=== PATIENT | male | born 1980 | race American Indian/Alaskan Native ===

== ENCOUNTER 2020-12-17 17:52 | Emergency (ER) | payer SELFPAY ==
[~2020-12-17] VITALS: Ht 180.3 cm; Wt 101.6 kg
[~2020-12-17 17:52] MED LIST: Augmentin 875-1 EACH PO; BENZ100A PO; Ocuflox5 ML BOTHEYES; Prednisone20 MG PO
[2020-12-17 18:16] LABS: BASOPHILS ABSOLUTE AUTO 0.06 K/mm3 (0.00-0.23); BASOPHILS PERCENT AUTO 1 % (0-2); EOSINOPHILS ABSOLUTE AUTO 0.22 K/mm3 (0.00-0.68); EOSINOPHILS PERCENT AUTO 2 % (0-6); Hematocrit 48.3 % (37.0-53.0); Hemoglobin 16.3 g/dL (13.5-17.5); IMMATURE GRAN ABSOLUTE AUTO 0.06 K/mm3 (0.00-0.10); IMMATURE GRAN PERCENT AUTO 1 % (0-1); LYMPHOCYTES ABSOLUTE AUTO 1.61 K/mm3 (0.84-5.20); LYMPHOCYTES PERCENT AUTO 12 % (21-46); MONOCYTES ABSOLUTE AUTO 1.18 K/mm3 (0.16-1.47); MONOCYTES PERCENT AUTO 9 % (4-13); Mean Corpuscular HGB 29.3 pg (26.0-34.0); Mean Corpuscular HGB Conc 33.7 g/dL (31.5-36.5); Mean Corpuscular Volume 87 fL (80-100); Mean Platelet Volume 10.2 fL (9.1-12.4); NEUTROPHILS ABSOLUTE AUTO 9.92 K/mm3 (1.96-9.15); NEUTROPHILS PERCENT AUTO 76 % (41-73); Platelet Count 416 K/mm3 (150-400); RDW Coefficient Variation 12.1 % (11.7-14.2); RDW Standard Deviation 38.5 fL (35.1-46.3); Red Blood Cell Count 5.57 M/mm3 (4.30-5.90); White Blood Cell Count 13.05 K/mm3 (4.00-11.30)
[2020-12-17 18:41] LABS: Alanine Aminotransfer (ALT/SGP 34 U/L (12-78); Albumin, Blood 3.6 g/dL (3.4-5.0); Albumin/Globulin Ratio 0.7 (0.8-1.8); Alk Phos 93 U/L (50-136); Anion Gap 6 mmol/L (6-16); Aspartate Aminotrans (AST/SGOT 18 U/L (12-37); Bilirubin, Total 0.5 mg/dL (0.1-1.0); Blood Urea Nitrogen 16 mg/dL (8-24); Bun/Creatinine Ratio 17.3 (12.0-20.0); CO2, Blood 25 mmol/L (21-32); Calcium, Blood 10.1 mg/dL (8.5-10.1); Chloride, Blood 109 mmol/L (98-108); Creatinine, Blood 0.93 mg/dL (0.60-1.20); Globulin, Blood 5.5 g/dL (2.2-4.0); Glomerular Filtration Rate >60 (60-); Glucose, Blood 126 mg/dL (70-99); Potassium, Blood 3.6 mmol/L (3.5-5.5); Sodium, Blood 140 mmol/L (136-145); Total Protein, Blood 9.1 g/dL (6.4-8.2)
[2020-12-17 19:51] LABS: Source, Urine Voided
[2020-12-17 19:54] LABS: Appearance, Urine Clear (Clear); Blood, Urine 2+ (Neg); Color, Urine Amber (P-Yellow); Glucose Qualitative, Urine Neg (Neg); Ketones, Urine Neg (Neg); Leukocyte Esterase, Urine 1+ (Neg); Nitrite, Urine Neg (Neg); Protein, Urine 2+ (Neg); Urobilinogen, Urine 3+ (Normal)
[2020-12-17 20:09] LABS: Bacteria Few /hpf; Bilirubin, Urine 1+ (Neg); Mucus Mod (0-Heavy); Squamous Epithelial Cells Not Seen /hpf (Few); White Blood Cells, Urine 0-2 /hpf (0-5)
[2020-12-17 20:10] LABS: Amorphous Light (0-Heavy)
[2020-12-17] MEDS ORDERED: AMOCLA875 PO (21:16)
== END 2020-12-17 21:27 | disposition home or self-care (01) ==
LOC: ER 17:52
PROVIDERS: Physician Assistant
DX: K57.32 Diverticulitis of large intestine without perforation or abscess without bleeding (principal); F17.200 Nicotine dependence, unspecified, uncomplicated
CPT/HCPCS: 36415; 74177; 80053; 81001; 83690; 85025; 96361; 96374-59; 99284-25; A9270; J0295; J7120; Q9967

== ENCOUNTER 2022-03-11 19:25 | Inpatient (IN) | payer OTHER ==
[~2022-03-11] VITALS: Ht 180.3 cm; Wt 89.8 kg
[~2022-03-11 19:25] MED LIST changes: +AMOCLA875 PO
[2022-03-11 20:25] LABS: BASOPHILS ABSOLUTE AUTO 0.08 K/mm3 (0.00-0.23); BASOPHILS PERCENT AUTO 1 % (0-2); EOSINOPHILS ABSOLUTE AUTO 0.11 K/mm3 (0.00-0.68); EOSINOPHILS PERCENT AUTO 1 % (0-6); Hematocrit 38.5 % (37.0-53.0); Hemoglobin 12.5 g/dL (13.5-17.5); IMMATURE GRAN ABSOLUTE AUTO 0.08 K/mm3 (0.00-0.10); IMMATURE GRAN PERCENT AUTO 1 % (0-1); LYMPHOCYTES ABSOLUTE AUTO 1.17 K/mm3 (0.84-5.20); LYMPHOCYTES PERCENT AUTO 7 % (21-46); MONOCYTES PERCENT AUTO 10 % (4-13); Mean Corpuscular HGB Conc 32.5 g/dL (31.5-36.5); Mean Corpuscular Volume 80 fL (80-100); Mean Platelet Volume 9.7 fL (9.1-12.4); NEUTROPHILS ABSOLUTE AUTO 12.89 K/mm3 (1.96-9.15); NEUTROPHILS PERCENT AUTO 81 % (41-73); Platelet Count 530 K/mm3 (150-400); RDW Coefficient Variation 14.1 % (11.7-14.2); RDW Standard Deviation 41.1 fL (35.1-46.3); White Blood Cell Count 15.93 K/mm3 (4.00-11.30)
[2022-03-11 20:39] LABS: Albumin, Blood 2.8 g/dL (3.4-5.0); Albumin/Globulin Ratio 0.5 (0.8-1.8); Bilirubin, Total 1.6 mg/dL (0.1-1.0); Bun/Creatinine Ratio 13.6 (12.0-20.0); Calcium, Blood 8.9 mg/dL (8.5-10.1); Creatinine, Blood 0.74 mg/dL (0.60-1.20); Globulin, Blood 5.3 g/dL (2.2-4.0); Total Protein, Blood 8.1 g/dL (6.4-8.2)
[2022-03-11 21:32] LABS: Source, Urine Clean Catch
[2022-03-11 21:39] LABS: Appearance, Urine Cloudy (Clear); Bilirubin, Urine Neg (Neg); Blood, Urine 5+ (Neg); Color, Urine Amber (P-Yellow); Glucose Qualitative, Urine Neg (Neg); Ketones, Urine Neg (Neg); Leukocyte Esterase, Urine 3+ (Neg); Nitrite, Urine Neg (Neg); Protein, Urine 3+ (Neg); Specific Gravity, Urine 1.015 (1.003-1.022); Urobilinogen, Urine 4+ (Normal)
[2022-03-11 21:57] LABS: Red Blood Cells, Urine 25-50 /hpf (0-2); White Blood Cells, Urine TNTC /hpf (0-5)
[2022-03-11 21:58] LABS: Bacteria Many /hpf; Squamous Epithelial Cells Rare /hpf (Few)
--- NOTE | 2022-03-12 00:23 | NUR ---
PATIENT ARRIVED TO THE ROOM AT 0010, VSS, NO DISTRESS NOTED. PT REQUESTED TO WALK FAMILY OUT OF THE BUILDING, EDUCATED ON RETURING TO THE ROOM WITHIN 30 MINUTE TIME LIMIT. WILL COMPLETE PATIENT ASSESSMENT UPON RETURN.
[2022-03-12] MEDS ORDERED: TAMS.4ER (02:21)
--- NOTE | 2022-03-12 04:15 | NUR ---
PT IS A NEW ADMIT THIS SHIFT, VSS. PT HAS BEEN TACHYCARDIC BUT HAS REMAINED ASYMPTOMATIC. PT HAS BEEN NPO SINCE ARRIVING TO THE FLOOR, AWAITING SURGICAL CONSULT IN THE AM TO SEE IF SURGERY IS REQUIRED. PTS PAIN HAS REMAINED IN THE LLQ AND ALONG THE BOTTOM OF THE ABDOMEN, MEDICATED FOR PAIN PER EMAR. PT C/O CONSTIPATION, HOME REMEDIES OF PRUNE JUICE AND UNKNOWN OTC LAXITIVES W/O RESULTS. PT C/O URGENCY AND PAIN WITH URINATION. PT HAS BEEN ABLE TO REMAIN INDEPENDENT T/O THE SHIFT. NO ACUTE EVENTS HAVE OCCURED AND THE PT IS NOT IN CURRENT DISTRESS.
[2022-03-12 05:19] LABS: BASOPHILS ABSOLUTE AUTO 0.08 K/mm3 (0.00-0.23); BASOPHILS PERCENT AUTO 1 % (0-2); EOSINOPHILS ABSOLUTE AUTO 0.29 K/mm3 (0.00-0.68); EOSINOPHILS PERCENT AUTO 2 % (0-6); Hematocrit 35.2 % (37.0-53.0); Hemoglobin 11.3 g/dL (13.5-17.5); IMMATURE GRAN ABSOLUTE AUTO 0.07 K/mm3 (0.00-0.10); IMMATURE GRAN PERCENT AUTO 1 % (0-1); LYMPHOCYTES ABSOLUTE AUTO 2.13 K/mm3 (0.84-5.20); LYMPHOCYTES PERCENT AUTO 17 % (21-46); MONOCYTES PERCENT AUTO 11 % (4-13); Mean Corpuscular HGB 26.5 pg (26.0-34.0); Mean Corpuscular HGB Conc 32.1 g/dL (31.5-36.5); Mean Corpuscular Volume 82 fL (80-100); Mean Platelet Volume 9.7 fL (9.1-12.4); NEUTROPHILS ABSOLUTE AUTO 8.95 K/mm3 (1.96-9.15); NEUTROPHILS PERCENT AUTO 69 % (41-73); Platelet Count 440 K/mm3 (150-400); RDW Coefficient Variation 14.3 % (11.7-14.2); RDW Standard Deviation 42.5 fL (35.1-46.3); Red Blood Cell Count 4.27 M/mm3 (4.30-5.90); White Blood Cell Count 12.92 K/mm3 (4.00-11.30)
[2022-03-12 05:38] LABS: Albumin, Blood 2.4 g/dL (3.4-5.0); Albumin/Globulin Ratio 0.5 (0.8-1.8); Bilirubin, Total 1.2 mg/dL (0.1-1.0); Bun/Creatinine Ratio 16.6 (12.0-20.0); Calcium, Blood 8.7 mg/dL (8.5-10.1); Creatinine, Blood 0.84 mg/dL (0.60-1.20); Globulin, Blood 4.5 g/dL (2.2-4.0); Potassium, Blood 3.7 mmol/L (3.5-5.5); Total Protein, Blood 6.9 g/dL (6.4-8.2)
[2022-03-12 08:23] LABS: International Normalized Ratio 1.43; Prothrombin Time Results 14.7 Sec (9.7-11.5)
--- NOTE | 2022-03-12 16:01 | NUR ---
SHIFT SUMMARY PT A&OX4, VSS/RA, IVF/ABX PER EMAR, PAIN TREATED WITH 5 MG OXY AND TORADOL, VOIDING-REPORTS DECREASED PAIN AND MARTINEZ IN COLOR, WITH SOME BLOOD, DINORAH CLD, AMB INDEPENDENTLY IN ROOM/BRP/HALLWAY. S/P CT GUIDED DRAIN PLACED LLQ, ODOROUS GREEN THICK FLUID OUT. WILL REPORT TO ONCOMING NOC RN.
--- NOTE | 2022-03-13 04:08 | NUR ---
POD1 FOR URACEL PLACEMENT IN LLQ. VSS. PT SLEPT WELL T/O THE NIGHT. PAIN HAS BEEM MANAGED WITH TORADOL AND TYLENOL. PT C/O CONTINUING CONSTIPATION, MINIMAL FLATTUS, AND DYSURIA. MEDICATED PER EMAR FOR CONSTIPATION. PT HAS BEEN ABLE TO AMBULATE INDEPENDENTLY T/O THE NIGHT. ATTEMPTED TO EMPTY URACEL DRAIN, UNABLE DUE TO CONSISTANCY OF THE DRAINAGE. GREEN, THICK, MUCOUSY, AND SANGUINEOUS FLUID NOTED. PT CURRENTLY SLEEPING, IN NO DISTRESS. CALL LIGHT IN REACH.
--- NOTE | 2022-03-13 09:42 | NUR ---
DR. HIGHTOWER CAME INTO THE ROOM AND ASSESSED THE PATIENTS DRAIN. THE DRAIN WAS CLOGGED FROM THICK MUCUS LIKE OUTPUT. DR. HIGHTOWER SAID TO "CALL IMAGING AND REPLACE THE DRAIN TUBE AND BAG". JUST REPLACED THE DRAIN AND TUBING AND ACCORDIAN IS PUSHED IN ALL THE WAY. RED OUTPUT IS ALREADY BEING SEEN IN THE DRAIN TUBING. PATIENT IS LAYING IN BED WITH CALL LIGHT WITHIN REACH.
--- NOTE | 2022-03-13 13:50 | NUR ---
SHIFT SUMMARY: DIVERTIC PERFED WITH ABSCESS PATIENT IS A&OX4. VS ARE WNL AND IS ON RA. PAIN IS MANAGED WITH PO TYLENOL AND 1 OXY. ABD IS TENDER TO TOUCH WITH HYPOACTIVE BOWEL TONES. HE IS TOLERATING HIS CLEAR LIQUID DIET. PATIENT HAS BEEN ABLE TO PASS GAS BUT NO BM YET. HE IS INDEP. IN THE ROOM. HIS URACIL DRAIN IS ON HIS ABD IN THE LLQ WITH VERY LITTLE RED OUTPUT IN THE TUBING. URACEL SITE IS C/D/I. PATIENT CALLS APPROPRIATELY. CALL LIGHT WITHIN REACH. THE PLAN IS TO CONTINUE IV ABX AND MONITOR URACEL OUTPUT.
--- NOTE | 2022-03-14 04:00 | NUR ---
VSS, PT SLEPT WELL T/O THE NIGHT. NO ACUTE EVENTS NOTED. PAIN MANAGED PER EMAR, PT REPORTED A TOLLERABLE DECREASE IN PAIN. URACEL DRAIN NOTED TO HAVE SCANT DRAINAGE. PT TOLLERATED PO INTAKE WELL, HAS NOT PASSED FLATTUS OR BM YET. PT CURRENTLY SLEEPING, IN NO DISTRESS.
[2022-03-14 04:25] LABS: BASOPHILS ABSOLUTE AUTO 0.09 K/mm3 (0.00-0.23); BASOPHILS PERCENT AUTO 1 % (0-2); EOSINOPHILS ABSOLUTE AUTO 0.24 K/mm3 (0.00-0.68); EOSINOPHILS PERCENT AUTO 2 % (0-6); Hematocrit 34.3 % (37.0-53.0); Hemoglobin 10.9 g/dL (13.5-17.5); IMMATURE GRAN ABSOLUTE AUTO 0.08 K/mm3 (0.00-0.10); IMMATURE GRAN PERCENT AUTO 1 % (0-1); LYMPHOCYTES ABSOLUTE AUTO 1.74 K/mm3 (0.84-5.20); LYMPHOCYTES PERCENT AUTO 16 % (21-46); MONOCYTES ABSOLUTE AUTO 1.12 K/mm3 (0.16-1.47); MONOCYTES PERCENT AUTO 10 % (4-13); Mean Corpuscular HGB 26.3 pg (26.0-34.0); Mean Corpuscular HGB Conc 31.8 g/dL (31.5-36.5); Mean Corpuscular Volume 83 fL (80-100); Mean Platelet Volume 9.8 fL (9.1-12.4); NEUTROPHILS ABSOLUTE AUTO 7.73 K/mm3 (1.96-9.15); NEUTROPHILS PERCENT AUTO 70 % (41-73); NRBC ABSOLUTE 0.05 K/mm3 (0.00-0.02); NRBC Auto 0.5 /100 WBC (0.0-0.2); Platelet Count 477 K/mm3 (150-400); RDW Coefficient Variation 14.3 % (11.7-14.2); RDW Standard Deviation 41.7 fL (35.1-46.3); Red Blood Cell Count 4.14 M/mm3 (4.30-5.90)
--- NOTE | 2022-03-14 04:29 | NUR ---
PT REPORTS STARTING TO PASS FLATTUS, EXPERIENCING RELIEF IN ABDOMINAL AREA
--- NOTE | 2022-03-14 17:57 | NUR ---
SHIFT SUMMARY NO ACUTE CHANGES THIS SHIFT. ADVANCED TO FULL LIQUID DIET AND TOLERATING WELL. DENIES N/V. PATIENT RESTING T/O DAY. DENIES PAIN. UP TO BR INDEPENDENTLY T/O SHIFT. REPORTS FLATUS T/O SHIFT, HAD BM TODAY. CALLS APPROPRIATELY, WILL REPORT TO ONCOMING RN.
--- NOTE | 2022-03-15 04:42 | NUR ---
SUMMARY PT HAS BEEN AMBULATORY AND WALKING FREQUENTLY. PT PAIN HAS BEEN MANAGED WELL THIS SHIFT. PT DRAIN IS INTACT AND DRAINING SS FLUID. PT HAS BEEN DRINKONG WATER EASILY AND DENIES N/V. PT HAD DIFFICULTY SLEEPING BUT IS RESTING COMFORTABLY. CALL LIGHT IN REACH.
--- NOTE | 2022-03-15 12:31 | NUR ---
1230 ASSUMED CARE OF PATIENT. PT REPORTS PAIN IS 0/10. TOLERATED REGULAR DIET FOR LUNCH WITHOUT NAUSEA
--- NOTE | 2022-03-15 17:39 | NUR ---
PT REPORTS MINIMAL ABD PAIN. UROSIL DRAIN WITH SCANT SEROSANGUINOUS DRAINAGE. PT DINORAH LOW RESIDUE DIET WITHOUT NAUSEA. PT AMBULATING IN HALLS , VOIDING CLAR YELLOW URINE.
--- NOTE | 2022-03-16 04:41 | NUR ---
ASSUMED CARE OF PT AT 1900 HRS. NO ACUTE CHANGES THIS SHIFT. PT IS A&OX4, INDEPENDENT WITH CARES AND IS ABLE TO MAKE NEEDS KNOWN. PT HAS DRAIN PLACED IN LLQ, SCANT AMOUNT OF SERO/SANG DRAINAGE. PAIN AT DRAIN SITE, HAS ISAURA 5MG AND ALSO HAS DILAUDID FOR BREAK THROUGH PAIN. PT ABLE TO AMBULATE FREELY. WILL CONTINUE TO MONITOR AND GIVE HANDOFF REPORT TO DAYSHIFT RN.
--- NOTE | 2022-03-16 11:33 | NUR ---
DRAIN REMOVED FROM LLQ. PAIN INCREASED AFTER DRAIN REMOVAL. PT GIVEN IV DILAUDID. HE REPORTS PAIN IS NOW MANAGED AND RATES IT AT 0/10.
[2022-03-16] MEDS ORDERED: AMOCLA875 PO ×2 (12:14)
[2022-03-16] MEDS ORDERED: Norco 5-325 Ta1 EACH PO ×2 (12:17)
--- NOTE | 2022-03-16 13:05 | NUR ---
DISCHARGE PT PROVIDED WITH WRITTEN AND VERBAL DISCHARGE INSTRUCTIONS, HE VERBALIZED UNDERSTANDING. PAIN MANAGED AT TIME OF DISCHARGE WITH PO PAIN MEDICATION. PT PROVIDED WITH A SCRIPT FOR ABX AND PAIN MEDICATION. PT AMBULATED OUT AT 1305.
== END 2022-03-16 13:05 | disposition home or self-care (01) | DRG 871 ==
LOC: ER 19:25 → SURS 23:04
PROVIDERS: Physician Assistant; ADMIT Surgery
PROC: 3E03329 Introduction of Other Anti-infective into Peripheral Vein, Percutaneous Approach (ICD-10-PCS; 2022-03-11)
PROC: 0W9J30Z Drainage of Pelvic Cavity with Drainage Device, Percutaneous Approach (ICD-10-PCS; principal; 2022-03-12)
DX: A41.9 Sepsis, unspecified organism (principal); K65.1 Peritoneal abscess; K57.20 Diverticulitis of large intestine with perforation and abscess without bleeding; F32.A Depression, unspecified; F17.210 Nicotine dependence, cigarettes, uncomplicated
CPT/HCPCS: 36415; 49405; 74177; 80053; 81001; 85025; 85610; 85730; 87070; 87075; 87077; 87086; 87186; 87205; 96365; 96375; 99285-25; A9270; J0295; J1170; J1885; J2405; J7030; J7120; Q9967

== ENCOUNTER 2022-03-20 12:23 | Emergency (ER) | payer OTHER ==
[~2022-03-20] VITALS: Ht 180.3 cm; Wt 99.8 kg
[~2022-03-20 12:23] MED LIST changes: +Norco 5-325 Ta1 EACH PO; +TAMS.4ER
[2022-03-20 13:15] LABS: BASOPHILS ABSOLUTE AUTO 0.08 K/mm3 (0.00-0.23); BASOPHILS PERCENT AUTO 1 % (0-2); EOSINOPHILS ABSOLUTE AUTO 0.23 K/mm3 (0.00-0.68); EOSINOPHILS PERCENT AUTO 3 % (0-6); Hematocrit 40.1 % (37.0-53.0); Hemoglobin 12.8 g/dL (13.5-17.5); IMMATURE GRAN ABSOLUTE AUTO 0.05 K/mm3 (0.00-0.10); IMMATURE GRAN PERCENT AUTO 1 % (0-1); LYMPHOCYTES ABSOLUTE AUTO 1.95 K/mm3 (0.84-5.20); LYMPHOCYTES PERCENT AUTO 21 % (21-46); MONOCYTES ABSOLUTE AUTO 0.53 K/mm3 (0.16-1.47); MONOCYTES PERCENT AUTO 6 % (4-13); Mean Corpuscular HGB 27.1 pg (26.0-34.0); Mean Corpuscular HGB Conc 31.9 g/dL (31.5-36.5); Mean Corpuscular Volume 85 fL (80-100); Mean Platelet Volume 9.7 fL (9.1-12.4); NEUTROPHILS ABSOLUTE AUTO 6.49 K/mm3 (1.96-9.15); NEUTROPHILS PERCENT AUTO 70 % (41-73); Platelet Count 494 K/mm3 (150-400); RDW Coefficient Variation 17.7 % (11.7-14.2); RDW Standard Deviation 48.6 fL (35.1-46.3); Red Blood Cell Count 4.72 M/mm3 (4.30-5.90); White Blood Cell Count 9.33 K/mm3 (4.00-11.30)
[2022-03-20 13:42] LABS: Albumin, Blood 2.5 g/dL (3.4-5.0); Albumin/Globulin Ratio 0.5 (0.8-1.8); Bilirubin, Total 0.9 mg/dL (0.1-1.0); Bun/Creatinine Ratio 9.8 (12.0-20.0); Calcium, Blood 8.7 mg/dL (8.5-10.1); Creatinine, Blood 0.82 mg/dL (0.60-1.20); Globulin, Blood 4.8 g/dL (2.2-4.0); Potassium, Blood 4.3 mmol/L (3.5-5.5); Total Protein, Blood 7.3 g/dL (6.4-8.2)
[2022-03-21] MEDS ORDERED: HYDPAM50 PO (12:47)
[2022-03-21] MEDS ORDERED: METR500 PO (12:48)
[2022-03-21] MEDS ORDERED: SULTRIDS PO (12:48)
== END 2022-03-20 16:20 | disposition left against medical advice (07) ==
LOC: ER 12:23
PROVIDERS: Student in an Organized Health Care Education/Training Program
DX: R06.02 Shortness of breath (principal); Z53.21 Procedure and treatment not carried out due to patient leaving prior to being seen by health care provider
CPT/HCPCS: 36415; 80053; 85025

== ENCOUNTER 2022-03-21 11:27 | Emergency (ER) | payer OTHER ==
[~2022-03-21] VITALS: Ht 180.3 cm; Wt 99.8 kg
[2022-03-21] MEDS ORDERED: HYDPAM50 PO (12:47)
[2022-03-21] MEDS ORDERED: SULTRIDS PO (12:48)
[2022-03-21] MEDS ORDERED: METR500 PO (12:48)
== END 2022-03-21 13:29 | disposition home or self-care (01) ==
LOC: ER 11:27
DX: L29.9 Pruritus, unspecified (principal); T36.0X5A Adverse effect of penicillins, initial encounter; T36.1X5A Adverse effect of cephalosporins and other beta-lactam antibiotics, initial encounter; F17.200 Nicotine dependence, unspecified, uncomplicated; Z88.0 Allergy status to penicillin; Z88.8 Allergy status to other drugs, medicaments and biological substances; Z79.899 Other long term (current) drug therapy
CPT/HCPCS: 99282

== ENCOUNTER 2022-05-21 15:18 | Emergency (ER) | payer OTHER ==
[~2022-05-21] VITALS: Ht 180.3 cm; Wt 95.2 kg
[~2022-05-21 15:18] MED LIST changes: +CARV25 PO; +ENTRESTO 49 MG1 EACH PO; +FUROSEMIDE20 MG PO; +HYDPAM50 PO; +METR500 PO; +Potassium Chlo20 ME1 PO; +SPIR25 PO; +STEGLATRO5 MG PO; +SULTRIDS PO; +[UNRECOGNIZED DRUG - CODE]
[2022-05-21] MEDS ORDERED: Vibramycin100 MG PO (17:07)
[2022-05-23 08:12] LABS: CHLAMYDIA TRACHOMATIS, NAA Negative (Negative)
== END 2022-05-21 17:34 | disposition home or self-care (01) ==
LOC: ER 15:18
PROVIDERS: Physician Assistant
DX: N45.1 Epididymitis (principal); F17.210 Nicotine dependence, cigarettes, uncomplicated; Z88.0 Allergy status to penicillin
CPT/HCPCS: 76870; 87491; 87591; A9270; J0696

== ENCOUNTER 2022-05-22 23:31 | Emergency (ER) | payer OTHER ==
[~2022-05-22] VITALS: Ht 180.3 cm; Wt 92.5 kg
[~2022-05-22 23:31] MED LIST changes: +Vibramycin100 MG PO
== END 2022-05-23 01:12 | disposition home or self-care (01) ==
LOC: ER 23:31
DX: N45.1 Epididymitis (principal); F17.200 Nicotine dependence, unspecified, uncomplicated; Z88.0 Allergy status to penicillin; Z88.8 Allergy status to other drugs, medicaments and biological substances
CPT/HCPCS: A9270

== ENCOUNTER 2022-05-25 20:36 | Inpatient (IN) | payer OTHER ==
[~2022-05-25] VITALS: Ht 180.3 cm; Wt 92.5 kg
[2022-05-25 22:02] LABS: Source, Urine Clean Catch
[2022-05-25 22:09] LABS: Bilirubin, Urine Neg (Neg); Blood, Urine 4+ (Neg); Glucose Qualitative, Urine Neg (Neg); Ketones, Urine Neg (Neg); Leukocyte Esterase, Urine 3+ (Neg); Nitrite, Urine Neg (Neg); Protein, Urine 2+ (Neg); Specific Gravity, Urine 1.015 (1.003-1.022); Urobilinogen, Urine 3+ (Normal)
[2022-05-25 22:16] LABS: Appearance, Urine Cloudy (Clear); Color, Urine Yellow (P-Yellow)
[2022-05-25 22:22] LABS: White Blood Cells, Urine TNTC /hpf (0-5)
[2022-05-25 22:23] LABS: Bacteria Many /hpf; Squamous Epithelial Cells Few /hpf (Few)
[2022-05-26 02:10] LABS: BASOPHILS ABSOLUTE AUTO 0.06 K/mm3 (0.00-0.23); BASOPHILS PERCENT AUTO 0 % (0-2); EOSINOPHILS ABSOLUTE AUTO 0.05 K/mm3 (0.00-0.68); EOSINOPHILS PERCENT AUTO 0 % (0-6); Hematocrit 42.4 % (37.0-53.0); Hemoglobin 14.1 g/dL (13.5-17.5); IMMATURE GRAN ABSOLUTE AUTO 0.16 K/mm3 (0.00-0.10); IMMATURE GRAN PERCENT AUTO 1 % (0-1); LYMPHOCYTES ABSOLUTE AUTO 1.29 K/mm3 (0.84-5.20); LYMPHOCYTES PERCENT AUTO 7 % (21-46); MONOCYTES ABSOLUTE AUTO 1.62 K/mm3 (0.16-1.47); MONOCYTES PERCENT AUTO 8 % (4-13); Mean Corpuscular HGB 28.1 pg (26.0-34.0); Mean Corpuscular HGB Conc 33.3 g/dL (31.5-36.5); Mean Corpuscular Volume 85 fL (80-100); Mean Platelet Volume 9.6 fL (9.1-12.4); NEUTROPHILS ABSOLUTE AUTO 16.71 K/mm3 (1.96-9.15); NEUTROPHILS PERCENT AUTO 84 % (41-73); Platelet Count 426 K/mm3 (150-400); RDW Coefficient Variation 17.5 % (11.7-14.2); RDW Standard Deviation 53.8 fL (35.1-46.3); Red Blood Cell Count 5.02 M/mm3 (4.30-5.90); White Blood Cell Count 19.89 K/mm3 (4.00-11.30)
[2022-05-26 02:24] LABS: Albumin, Blood 2.8 g/dL (3.4-5.0); Albumin/Globulin Ratio 0.6 (0.8-1.8); Bilirubin, Total 1.4 mg/dL (0.1-1.0); Bun/Creatinine Ratio 18.1 (12.0-20.0); C-REACTIVE PROTEIN, EXT RANGE 16.5 mg/dL (0.000-0.300); Calcium, Blood 8.6 mg/dL (8.5-10.1); Creatinine, Blood 0.61 mg/dL (0.60-1.20); Globulin, Blood 4.7 g/dL (2.2-4.0); Potassium, Blood 3.8 mmol/L (3.5-5.5); Total Protein, Blood 7.5 g/dL (6.4-8.2)
[2022-05-26] MEDS ORDERED: METOPROLOL (11:16)
--- NOTE | 2022-05-26 17:20 | NUR ---
SHIFT SUMMARY PT ADMITTED THIS MORNING. ORIENTED TO ROOM AT THAT TIME. PT MET WITH DR. PAEZ TODAY AND CONTINUES TO REFUSE COBRA TRANSFER. PT SCROTUM CONTINUES TO BE SWOLLEN. PT ELEVATING IT UP ON PILLOWS WHILE IN BED. MEDICATED PER EMAR. PT STATES HIS PAIN IS CURRENTLY UNDER CONTROL AT THIS TIME. VS REVIEWED. PT REFUSING COREG AND STATING HE DOES NOT TAKE THAT AT HOME ANYMORE. DR. PAEZ NOTIFIED. NO OTHER ACUTE CHANGES IN ASSESSMENT AT THIS TIME.
[2022-05-27 04:25] LABS: BASOPHILS ABSOLUTE AUTO 0.07 K/mm3 (0.00-0.23); BASOPHILS PERCENT AUTO 0 % (0-2); EOSINOPHILS ABSOLUTE AUTO 0.22 K/mm3 (0.00-0.68); EOSINOPHILS PERCENT AUTO 1 % (0-6); Hematocrit 37.9 % (37.0-53.0); Hemoglobin 12.7 g/dL (13.5-17.5); IMMATURE GRAN ABSOLUTE AUTO 0.09 K/mm3 (0.00-0.10); IMMATURE GRAN PERCENT AUTO 1 % (0-1); LYMPHOCYTES ABSOLUTE AUTO 1.62 K/mm3 (0.84-5.20); LYMPHOCYTES PERCENT AUTO 10 % (21-46); MONOCYTES ABSOLUTE AUTO 1.49 K/mm3 (0.16-1.47); MONOCYTES PERCENT AUTO 10 % (4-13); Mean Corpuscular HGB 28.2 pg (26.0-34.0); Mean Corpuscular HGB Conc 33.5 g/dL (31.5-36.5); Mean Corpuscular Volume 84 fL (80-100); Mean Platelet Volume 9.9 fL (9.1-12.4); NEUTROPHILS ABSOLUTE AUTO 12.08 K/mm3 (1.96-9.15); NEUTROPHILS PERCENT AUTO 78 % (41-73); Platelet Count 420 K/mm3 (150-400); RDW Coefficient Variation 17.2 % (11.7-14.2); RDW Standard Deviation 53.1 fL (35.1-46.3); White Blood Cell Count 15.57 K/mm3 (4.00-11.30)
[2022-05-27 04:45] LABS: Albumin, Blood 2.5 g/dL (3.4-5.0); Anion Gap 8 mmol/L (6-16); Blood Urea Nitrogen 18 mg/dL (8-24); Bun/Creatinine Ratio 26.4 (12.0-20.0); CO2, Blood 26 mmol/L (21-32); Calcium, Blood 8.8 mg/dL (8.5-10.1); Chloride, Blood 99 mmol/L (98-108); Creatinine, Blood 0.68 mg/dL (0.60-1.20); Glomerular Filtration Rate 119 (60-); Glucose, Blood 89 mg/dL (70-99); Phosphorus, Blood 3.6 mg/dL (2.5-4.9); Potassium, Blood 3.8 mmol/L (3.5-5.5); Sodium, Blood 133 mmol/L (136-145)
--- NOTE | 2022-05-27 05:49 | NUR ---
A/OX4; CALM AND COOPERATIVE. C/O SEVERE PAIN TO TESTICLES; PRN ANALGESICS PER ORDERS; HELPFUL PER PATIENT. IND IN ROOM. SHOWERED. THIS RN REQUESTED THAT PATIENT USE URINAL (NO OUTPUT FOR MOST OF SHIFT AND ON TORADOL); 250 ML TOTAL AT END OF SHIFT, VERY CONCENTRATED. PO FLUIDS ENCOURAGED. TELE: SR /ST WITH HR UP TO 90's. ABX PER ORDERS. CALL LIGHT IN REACH; ENCOURAGED TO MAKE NEEDS KNOWN.
--- NOTE | 2022-05-27 17:26 | NUR ---
PATIENT C/O CP AND RIGHT JAW PAIN 4/10 AT THIS TIME. VITALS REVEAL PULSE 95 BPM, BP 114/85, SP02 100%, TEMP 98.1, RESP 16
--- NOTE | 2022-05-27 18:54 | NUR ---
PATIENT IS ALERT AND ORIENTED AND COOPERATIVE WITH CARE. PAIN MANAGED PER EMAR. PATIENT STATES THAT THE JOCK STRAP IS HELPING. PATIENT SHOWERED TODAY. NICOTINE PATCH IN PLACE. PLAN IS FOR ANTIBIOTICS AND PAIN MANAGEMENT. PATIENT C/O CP AND RIGHT JAW PAIN THIS AFTERNOON, RESOLVED ON IT'S OWN. WILL CONTINUE TO MONITOR
--- NOTE | 2022-05-28 06:45 | NUR ---
A/OX4; CALM AND COOPERATIVE. C/O SEVERE PAIN TO TESTICLES; PRN ANALGESICS PER ORDERS; HELPFUL PER PATIENT. IND IN ROOM. PO FLUIDS ENCOURAGED. TELE: SR /ST WITH HR UP TO 90's. CALL LIGHT IN REACH; ENCOURAGED TO MAKE NEEDS KNOWN.
[2022-05-28 07:59] LABS: BASOPHILS ABSOLUTE AUTO 0.03 K/mm3 (0.00-0.23); BASOPHILS PERCENT AUTO 0 % (0-2); EOSINOPHILS ABSOLUTE AUTO 0.35 K/mm3 (0.00-0.68); EOSINOPHILS PERCENT AUTO 3 % (0-6); Hematocrit 38.6 % (37.0-53.0); Hemoglobin 12.8 g/dL (13.5-17.5); IMMATURE GRAN ABSOLUTE AUTO 0.06 K/mm3 (0.00-0.10); IMMATURE GRAN PERCENT AUTO 1 % (0-1); LYMPHOCYTES PERCENT AUTO 13 % (21-46); MONOCYTES ABSOLUTE AUTO 1.26 K/mm3 (0.16-1.47); MONOCYTES PERCENT AUTO 10 % (4-13); Mean Corpuscular HGB 27.9 pg (26.0-34.0); Mean Corpuscular HGB Conc 33.2 g/dL (31.5-36.5); Mean Corpuscular Volume 84 fL (80-100); Mean Platelet Volume 9.5 fL (9.1-12.4); NEUTROPHILS PERCENT AUTO 73 % (41-73); Platelet Count 410 K/mm3 (150-400); RDW Coefficient Variation 17.2 % (11.7-14.2); RDW Standard Deviation 52.6 fL (35.1-46.3); Red Blood Cell Count 4.59 M/mm3 (4.30-5.90)
[2022-05-28 08:16] LABS: Bun/Creatinine Ratio 25.2 (12.0-20.0); Calcium, Blood 8.7 mg/dL (8.5-10.1); Creatinine, Blood 0.52 mg/dL (0.60-1.20); Potassium, Blood 3.9 mmol/L (3.5-5.5)
--- NOTE | 2022-05-28 11:03 | NUR ---
PT INDEPENDENT IN ROOM, ROOM AIR, IV ACCESS TO LEFT AC. DR. CONNOR VISTED AT 0840 TO DISCUSS TRANSITIONING TO ORAL PAIN MEDICATION. 5MG OXYCODONE WORKED TO REDUCE PT'S PAIN FROM 8/10 TO 210. PT IS WITHDRAWN, NEUTRAL, BUT COOPERATIVE WITH CARE. ROOM AIR. TELEMETRY REPORTS SINUS IN THE 90'S. PT DENIES CHEST PAIN OR PRESSURE.
--- NOTE | 2022-05-28 12:47 | NUR ---
with pt verbal pt, RN spoke to pt's mother Tanya and gave status update. pt will be discharged today, updated by Dr. Borrero to RN.
[2022-05-28] MEDS ORDERED: DOCU100 PO (13:55)
[2022-05-28] MEDS ORDERED: NAPR500 PO (13:56)
[2022-05-28] MEDS ORDERED: LEVO750 PO (13:56)
[2022-05-28] MEDS ORDERED: OXYC5 PO (13:58)
[2022-05-28] MEDS ORDERED: NICO21TP TOP (13:58)
[2022-05-28] MEDS ORDERED: VISBIOME 112.51 EACH PO (13:59)
[2022-05-28] MEDS ORDERED: SENNA LAXATIVE8.6 MG PO (13:59)
--- NOTE | 2022-05-28 14:30 | NUR ---
RN COMPLETED DISCHARGE TEACHING WITH PT, INCLUDING PICKING UP MEDICATIONS FROM [facility]. GREEN HARD COPY SCRIPTS WERE GIVEN TO PT FOR PROTONIX AND OXYCODONE 5MG. INSTRUCTED TO MAINTAIN F/U APPTS SCHEDULED WITH PCP. PT VERBALIZED UNDERSTANDING AND NO FURTHER QUESTIONS. IV REMOVED BY UNLOADER OPERATOR, TELEMETRY REMOVED. CANDY CUTTER HAND NOTIFIED. PT'S BELONGINGS WERE PACKED UP.
--- NOTE | 2022-05-28 16:19 | NUR ---
DISCHARGE NOTE APPOINTMENT SPECIALIST REPORTS THAT PT DISCHARGED AT 1600.
== END 2022-05-28 16:14 | disposition home or self-care (01) | DRG 872 ==
LOC: ER 20:36 → MEDS 05-26 06:12
PROVIDERS: Emergency Medicine; Internal Medicine; Student in an Organized Health Care Education/Training Program; ADMIT Family Medicine
DX: A41.51 Sepsis due to Escherichia coli [E. coli] (principal); I42.8 Other cardiomyopathies; I50.22 Chronic systolic (congestive) heart failure; N39.0 Urinary tract infection, site not specified; N45.1 Epididymitis; F15.10 Other stimulant abuse, uncomplicated; Z88.1 Allergy status to other antibiotic agents; Z88.8 Allergy status to other drugs, medicaments and biological substances; F32.A Depression, unspecified; N49.2 Inflammatory disorders of scrotum; N43.3 Hydrocele, unspecified; D75.839 Thrombocytosis, unspecified; F17.210 Nicotine dependence, cigarettes, uncomplicated; Z71.6 Tobacco abuse counseling
CPT/HCPCS: 36415; 76870; 80048; 80053; 80069; 81001; 83605; 85025; 86140; 87077; 87086; 87186; A9270; C9113; J0696; J1170; J1650; J1885; J3010; J3370; J7050

== ENCOUNTER 2022-06-23 12:03 | Emergency (ER) | payer OTHER ==
[~2022-06-23 12:03] MED LIST changes: +DOCU100 PO; +LEVO750 PO; +METOPROLOL; +NAPR500 PO; +NICO21TP TOP; +OXYC5 PO; +SENNA LAXATIVE8.6 MG PO; +VISBIOME 112.51 EACH PO
[2022-06-23] MEDS ORDERED: CEPH500 PO (17:42)
== END 2022-06-23 17:55 | disposition home or self-care (01) ==
DX: N50.89 Other specified disorders of the male genital organs (principal); N49.2 Inflammatory disorders of scrotum; I42.9 Cardiomyopathy, unspecified; Z91.14 Patient's other noncompliance with medication regimen; F17.210 Nicotine dependence, cigarettes, uncomplicated; Z79.899 Other long term (current) drug therapy

== ENCOUNTER 2022-06-30 18:10 | Inpatient (IN) | payer OTHER ==
[~2022-06-30] VITALS: Ht 180.3 cm; Wt 96.5 kg
[~2022-06-30 18:10] MED LIST changes: +CEPH500 PO
[2022-06-30 19:26] LABS: BASOPHILS ABSOLUTE AUTO 0.08 K/mm3 (0.00-0.23); BASOPHILS PERCENT AUTO 1 % (0-2); EOSINOPHILS ABSOLUTE AUTO 0.09 K/mm3 (0.00-0.68); EOSINOPHILS PERCENT AUTO 1 % (0-6); Hematocrit 39.4 % (37.0-53.0); Hemoglobin 13.1 g/dL (13.5-17.5); IMMATURE GRAN ABSOLUTE AUTO 0.04 K/mm3 (0.00-0.10); IMMATURE GRAN PERCENT AUTO 1 % (0-1); LYMPHOCYTES ABSOLUTE AUTO 1.21 K/mm3 (0.84-5.20); LYMPHOCYTES PERCENT AUTO 14 % (21-46); MONOCYTES ABSOLUTE AUTO 0.77 K/mm3 (0.16-1.47); MONOCYTES PERCENT AUTO 9 % (4-13); Mean Corpuscular HGB 28.2 pg (26.0-34.0); Mean Corpuscular HGB Conc 33.2 g/dL (31.5-36.5); Mean Corpuscular Volume 85 fL (80-100); Mean Platelet Volume 9.5 fL (9.1-12.4); NEUTROPHILS ABSOLUTE AUTO 6.58 K/mm3 (1.96-9.15); NEUTROPHILS PERCENT AUTO 75 % (41-73); Platelet Count 334 K/mm3 (150-400); RDW Coefficient Variation 16.5 % (11.7-14.2); RDW Standard Deviation 50.5 fL (35.1-46.3); Red Blood Cell Count 4.65 M/mm3 (4.30-5.90); White Blood Cell Count 8.77 K/mm3 (4.00-11.30)
[2022-06-30 19:29] LABS: Influenza A, PCR NEGATIVE (NEGATIVE); Influenza B, PCR NEGATIVE (NEGATIVE); Resp Syncytial Virus, PCR NEGATIVE (NEGATIVE); SARS-Cov-2 (COVID-19) PCR, MMC NEGATIVE (NEGATIVE)
[2022-06-30 19:37] LABS: Albumin, Blood 3.2 g/dL (3.4-5.0); Albumin/Globulin Ratio 0.7 (0.8-1.8); Bilirubin, Total 1.7 mg/dL (0.1-1.0); Bun/Creatinine Ratio 19.3 (12.0-20.0); Calcium, Blood 9.1 mg/dL (8.5-10.1); Creatinine, Blood 0.73 mg/dL (0.60-1.20); Globulin, Blood 4.5 g/dL (2.2-4.0); Potassium, Blood 3.8 mmol/L (3.5-5.5); Total Protein, Blood 7.7 g/dL (6.4-8.2)
[2022-07-01 01:08] LABS: Anti-Xa UFH, PHA Monitoring <0.10 IU/mL; International Normalized Ratio 1.58; Prothrombin Time Results 16.1 Sec (9.7-11.5)
[2022-07-01 09:06] LABS: U Amphetamine Screen Not Detected; U Barbituate Screen Not Detected; U Benzodiazapine Screen Not Detected; U Buprenorphine Screen Not Detected; U Cannabinoids Screen Not Detected; U Cocaine Screen Not Detected; U Methadone Screen Not Detected; U Methamphetamine Screen Not Detected; U Opiates Screen Not Detected; U Oxycodone Screen DETECTED; U Phencyclidine Screen Not Detected; U Propoxyphene Screen Not Detected
[2022-07-01] MEDS ORDERED: Cipro500 MG PO (12:52)
[2022-07-01] MEDS ORDERED: METR500 PO (13:01)
--- NOTE | 2022-07-01 17:47 | NUR ---
ARRIVAL TO [facility]/SHIFT SUMMARY PT ARRIVED TO [facility] AT APPROXIMATELY 1500. PT STOOD AN TRANSFERED SELF IND FROM ER [facility] TO HOSPITAL BED. PT ARRIVED WITH HEPARIN GTT INFUSING, CONFIRMED WITH PHARMACY. PT IS A&Ox4, CALLS AND COMMUNICATES NEEDS APPROPRIATELY. VSS, DENIES CP/PRESSURE/SOB. ORIENTED PT TO ROOM/UNIT, CALL LIGHT IN REACH, BED IN LOWEST POSITION. SCROTUM WOUND ASSESSED AND WOUND CARE PROVIDED WITH MELY ROUSSEAU. PT SMOKES CIGARETTES DAILY, REFUSED NICOTINE PATCH. PT REMAINED A&Ox4, CALLS AND COMMUNICATES NEEDS APPROPRIATELY. VSS, SpO2> 92% RA. BP STABLE, SINUS 80's, DENIES CP/PRESSURE. PT IS IND IN ROOM, CONTINENT OF URINE AND BOWEL. HEPARIN GTT INFUSING PER EMAR. NO ACUTE EVENTS. WILL REPORT TO DAY SHIFT RN.
--- NOTE | 2022-07-02 05:09 | NUR ---
PHARMACIST NAYA CONTACTED REGARDING HEPARIN DOSE AND THIS RN WAS INSTRUCTED TO LEAVE HEPARIN GTT AT CURRENT RATE OF 17 U/KG/HR.
--- NOTE | 2022-07-02 06:11 | NUR ---
DRAW FRAME RUNNER SUMMARY ASSUMED CARE OF PT AT 1900. HE IS ALERT AND ORIENTED, INDEPENDENT IN THE ROOM. PT WITH INCREASING PAIN TO THE LEFT SCROTAL AREA DUE TO ABSCESS AND TORSION. MEDICATED X2 WITH IV FENTANYL AND ORDER OBTAINED FOR 10 MG PO OXYCODONE THAT PT REPORTED MANAGING HIS PAIN AT HOME. HE CONTINUES TO DENY CHEST PAIN. PT HAD TWO EPISODES OF ASYMPTOMATIC SHORT SVT WHILE SLEEPING. HE HAD SOME SHORTNESS OF BREATH AT BEGINNING OF SHIFT BUT THIS RESOLVED. CURRENTLY IN THE 80S SINUS RHYTHM ON TELE. HEPARIN DRIP CHANGED TO 17 U/KG/HR PER PHARMACY MANAGEMENT. PT RECEIVED IV ZOSYN AND VANCO LAST NIGHT. BP HAS BEEN STABLE. PT ABLE TO ASSIST WITH DRESSING CHANGES TO THE SCROTAL AREA. PT AMBULATING THROUGH THE BENITEZ WITHOUT DIFFICULTY. PT AWAITING TRANSFER TO ANOTHER FACILITY FOR UROLOGY.
--- NOTE | 2022-07-02 07:45 | NUR ---
AM ASSESSMENT: Pt resting in bed. Denies CP or SOB at this time. Does C/O scrotal pain 09/06 that is tolerable at this time. LS clear. HR reg. BT positive. Pulses palp. Scrotum with dressing intact. Heprin gtt running. A/Ox4. Denies needs at this time. Call light in reach.
[2022-07-02 08:32] LABS: Vancomycin, Trough 20.7 ug/mL (5.0-10.0)
[2022-07-02] MEDS ORDERED: JARDIANCE10 MG PO (11:00)
[2022-07-02] MEDS ORDERED: METO25ER PO (11:00)
[2022-07-02] MEDS ORDERED: SOAANZ20 M1 PO (11:01)
[2022-07-02] MEDS ORDERED: SPIR25 PO (11:01)
[2022-07-02] MEDS ORDERED: VISBIOME 112.51 EACH PO (11:02)
[2022-07-02] MEDS ORDERED: AMOCLA250S PO (11:03)
--- NOTE | 2022-07-02 13:11 | NUR ---
DISCHARGE NOTE: Pt was given verbal and written discharge instructions. This included education about medications, F/U appointments, wound care and when/if to return to ER. Pt verbalized understanding, denies questions. IV's were discontinued, caths intact. Pt left via W/C Prior to D/C Pt mother called, very anxious and concerned about Pt being discharged. She stated "You are sending him home to ". Mother was informed that Pt. issues are chronic and that we do not have urology here to take care of scrotal wound. Also explained dire bed availablity throughout all of [place] and low likelyhood of Pt actually being able to be transfered. Explained the importance of medication compliance and compliance with follow up appointments. Pt mother was still not happy and wanted to talk to "administration". After multiple phone calls by Mother it was determined that Pt would be discharged. Pt Mother came and picked up patient.
== END 2022-07-02 13:16 | disposition home or self-care (01) | DRG 917 ==
LOC: ER 18:10 → ERHOLD 07-01 06:04 → PCU 07-01 06:04
PROVIDERS: Internal Medicine; Student in an Organized Health Care Education/Training Program; ADMIT Internal Medicine
DX: T43.651A Poisoning by methamphetamines accidental (unintentional), initial encounter (principal); I21.4 Non-ST elevation (NSTEMI) myocardial infarction; E87.1 Hypo-osmolality and hyponatremia; I42.7 Cardiomyopathy due to drug and external agent; I50.22 Chronic systolic (congestive) heart failure; I24.9 Acute ischemic heart disease, unspecified; N45.3 Epididymo-orchitis; F32.A Depression, unspecified; F17.210 Nicotine dependence, cigarettes, uncomplicated; F15.10 Other stimulant abuse, uncomplicated; I08.1 Rheumatic disorders of both mitral and tricuspid valves; F10.10 Alcohol abuse, uncomplicated; Z20.822 Contact with and (suspected) exposure to COVID-19; Z79.2 Long term (current) use of antibiotics; Z79.891 Long term (current) use of opiate analgesic; Z98.890 Other specified postprocedural states; Z79.899 Other long term (current) drug therapy; Z91.14 Patient's other noncompliance with medication regimen; Z79.82 Long term (current) use of aspirin
CPT/HCPCS: 0241U; 36415; 71045; 76857; 76870; 80053; 80202; 83690; 84484; 85025; 85520; 85610; 85730; 87070; 87075; 87205; 93005; 93010; 96365; 96366; 96375; 99285-25; A9270; G0480; J0692; J1644; J2543; J3010; J3370; J7050

== ENCOUNTER 2022-07-30 01:00 | Emergency (ER) | payer OTHER ==
[~2022-07-30] VITALS: Ht 175.3 cm; Wt 95.2 kg
[~2022-07-30 01:00] MED LIST changes: +AMOCLA250S PO; +Cipro500 MG PO; +JARDIANCE10 MG PO; +METO25ER PO; +SOAANZ20 M1 PO
[2022-07-30 01:58] LABS: BASOPHILS ABSOLUTE AUTO 0.06 K/mm3 (0.00-0.23); BASOPHILS PERCENT AUTO 1 % (0-2); EOSINOPHILS ABSOLUTE AUTO 0.07 K/mm3 (0.00-0.68); EOSINOPHILS PERCENT AUTO 1 % (0-6); Hematocrit 37.8 % (37.0-53.0); Hemoglobin 12.4 g/dL (13.5-17.5); IMMATURE GRAN ABSOLUTE AUTO 0.03 K/mm3 (0.00-0.10); IMMATURE GRAN PERCENT AUTO 0 % (0-1); LYMPHOCYTES ABSOLUTE AUTO 1.37 K/mm3 (0.84-5.20); LYMPHOCYTES PERCENT AUTO 14 % (21-46); MONOCYTES ABSOLUTE AUTO 0.84 K/mm3 (0.16-1.47); MONOCYTES PERCENT AUTO 9 % (4-13); Mean Corpuscular HGB 28.4 pg (26.0-34.0); Mean Corpuscular HGB Conc 32.8 g/dL (31.5-36.5); Mean Corpuscular Volume 87 fL (80-100); Mean Platelet Volume 10.3 fL (9.1-12.4); NEUTROPHILS ABSOLUTE AUTO 7.53 K/mm3 (1.96-9.15); NEUTROPHILS PERCENT AUTO 76 % (41-73); Platelet Count 323 K/mm3 (150-400); RDW Coefficient Variation 15.8 % (11.7-14.2); RDW Standard Deviation 49.1 fL (35.1-46.3); Red Blood Cell Count 4.37 M/mm3 (4.30-5.90)
[2022-07-30 02:04] LABS: Source, Urine Clean Catch
[2022-07-30 02:07] LABS: Bilirubin, Urine Neg (Neg); Blood, Urine 5+ (Neg); Glucose Qualitative, Urine Neg (Neg); Ketones, Urine 1+ (Neg); Leukocyte Esterase, Urine 3+ (Neg); Nitrite, Urine Neg (Neg); Protein, Urine 4+ (Neg); Urobilinogen, Urine NORM (Normal)
[2022-07-30 02:17] LABS: Albumin, Blood 2.3 g/dL (3.4-5.0); Albumin/Globulin Ratio 0.8 (0.8-1.8); Bilirubin, Total 1.3 mg/dL (0.1-1.0); Bun/Creatinine Ratio 29.5 (12.0-20.0); Calcium, Blood 6.4 mg/dL (8.5-10.1); Creatinine, Blood 0.61 mg/dL (0.60-1.20); Globulin, Blood 2.9 g/dL (2.2-4.0); Potassium, Blood 3.6 mmol/L (3.5-5.5); Total Protein, Blood 5.2 g/dL (6.4-8.2)
[2022-07-30 03:08] LABS: Appearance, Urine Turbid (Clear); Color, Urine Red (P-Yellow)
[2022-07-30 03:12] LABS: Amorphous Light (0-Heavy); Bacteria Many /hpf; Red Blood Cells, Urine TNTC /hpf (0-2); Squamous Epithelial Cells Rare /hpf (Few); White Blood Cells, Urine 50-100 /hpf (0-5)
[2022-07-30] MEDS ORDERED: Pyridium100 MG PO (06:06)
[2022-07-30] MEDS ORDERED: CEPH500 PO (06:06)
== END 2022-07-30 06:32 | disposition home or self-care (01) ==
LOC: ER 01:00
PROVIDERS: Student in an Organized Health Care Education/Training Program
DX: N30.91 Cystitis, unspecified with hematuria (principal); N50.89 Other specified disorders of the male genital organs; R06.02 Shortness of breath; I50.9 Heart failure, unspecified; F17.200 Nicotine dependence, unspecified, uncomplicated; Z79.899 Other long term (current) drug therapy
CPT/HCPCS: 71046; 76870; 80053; 81001; 83605; 83880; 84484; 85025; 87077; 87086; 87186; 93005; 93010; A9270; J0696; J3010

== ENCOUNTER 2022-08-17 11:04 | Emergency (ER) | payer OTHER ==
[~2022-08-17] VITALS: Ht 180.3 cm; Wt 98.4 kg
[~2022-08-17 11:04] MED LIST changes: +Pyridium100 MG PO
[2022-08-17 11:58] LABS: Albumin, Blood 3.1 g/dL (3.4-5.0); Albumin/Globulin Ratio 0.8 (0.8-1.8); Bilirubin, Total 1.8 mg/dL (0.1-1.0); Bun/Creatinine Ratio 20.2 (12.0-20.0); Calcium, Blood 8.8 mg/dL (8.5-10.1); Creatinine, Blood 0.79 mg/dL (0.60-1.20); Globulin, Blood 4.1 g/dL (2.2-4.0); Potassium, Blood 4.5 mmol/L (3.5-5.5); Total Protein, Blood 7.2 g/dL (6.4-8.2)
[2022-08-17 12:06] LABS: Magnesium, Blood 2.1 mg/dL (1.6-2.4); Phosphorus, Blood 3.5 mg/dL (2.5-4.9)
[2022-08-17 12:53] LABS: BASOPHILS ABSOLUTE AUTO 0.07 K/mm3 (0.00-0.23); BASOPHILS PERCENT AUTO 1 % (0-2); EOSINOPHILS ABSOLUTE AUTO 0.23 K/mm3 (0.00-0.68); EOSINOPHILS PERCENT AUTO 3 % (0-6); Hemoglobin 14.1 g/dL (13.5-17.5); IMMATURE GRAN ABSOLUTE AUTO 0.01 K/mm3 (0.00-0.10); IMMATURE GRAN PERCENT AUTO 0 % (0-1); LYMPHOCYTES ABSOLUTE AUTO 1.49 K/mm3 (0.84-5.20); LYMPHOCYTES PERCENT AUTO 22 % (21-46); MONOCYTES ABSOLUTE AUTO 0.53 K/mm3 (0.16-1.47); MONOCYTES PERCENT AUTO 8 % (4-13); Mean Corpuscular HGB 28.3 pg (26.0-34.0); Mean Corpuscular HGB Conc 32.8 g/dL (31.5-36.5); Mean Corpuscular Volume 86 fL (80-100); Mean Platelet Volume 9.9 fL (9.1-12.4); NEUTROPHILS ABSOLUTE AUTO 4.42 K/mm3 (1.96-9.15); NEUTROPHILS PERCENT AUTO 66 % (41-73); Platelet Count 281 K/mm3 (150-400); RDW Coefficient Variation 16.6 % (11.7-14.2); RDW Standard Deviation 51.3 fL (35.1-46.3); Red Blood Cell Count 4.99 M/mm3 (4.30-5.90); White Blood Cell Count 6.75 K/mm3 (4.00-11.30)
[2022-08-17] MEDS ORDERED: CYCL10 PO (13:57)
== END 2022-08-17 14:20 | disposition home or self-care (01) ==
LOC: ER 11:04
PROVIDERS: Emergency Medicine
DX: I50.9 Heart failure, unspecified (principal); F17.200 Nicotine dependence, unspecified, uncomplicated; Z79.899 Other long term (current) drug therapy; Z86.79 Personal history of other diseases of the circulatory system
CPT/HCPCS: 36415; 71046; 80053; 83735; 83880; 84100; 84484; 85025; 93005; 93010; J1940; J2405; J3010

== ENCOUNTER 2022-09-01 00:48 | Emergency (ER) | payer OTHER ==
[~2022-09-01] VITALS: Ht 180.3 cm; Wt 102.1 kg
[~2022-09-01 00:48] MED LIST changes: +CYCL10 PO
[2022-09-01] MEDS ORDERED: ENTRESTO 49 MG1 EAC7 PO (01:02)
[2022-09-01 01:11] LABS: BASOPHILS ABSOLUTE AUTO 0.14 K/mm3 (0.00-0.23); BASOPHILS PERCENT AUTO 2 % (0-2); EOSINOPHILS ABSOLUTE AUTO 0.67 K/mm3 (0.00-0.68); EOSINOPHILS PERCENT AUTO 7 % (0-6); Hematocrit 47.4 % (37.0-53.0); Hemoglobin 15.4 g/dL (13.5-17.5); IMMATURE GRAN ABSOLUTE AUTO 0.03 K/mm3 (0.00-0.10); IMMATURE GRAN PERCENT AUTO 0 % (0-1); LYMPHOCYTES ABSOLUTE AUTO 2.67 K/mm3 (0.84-5.20); LYMPHOCYTES PERCENT AUTO 28 % (21-46); MONOCYTES ABSOLUTE AUTO 0.79 K/mm3 (0.16-1.47); MONOCYTES PERCENT AUTO 8 % (4-13); Mean Corpuscular HGB 27.6 pg (26.0-34.0); Mean Corpuscular HGB Conc 32.5 g/dL (31.5-36.5); Mean Corpuscular Volume 85 fL (80-100); Mean Platelet Volume 9.3 fL (9.1-12.4); NEUTROPHILS ABSOLUTE AUTO 5.32 K/mm3 (1.96-9.15); NEUTROPHILS PERCENT AUTO 55 % (41-73); Platelet Count 357 K/mm3 (150-400); RDW Coefficient Variation 16.9 % (11.7-14.2); RDW Standard Deviation 50.7 fL (35.1-46.3); Red Blood Cell Count 5.58 M/mm3 (4.30-5.90); White Blood Cell Count 9.62 K/mm3 (4.00-11.30)
[2022-09-01 02:21] LABS: Albumin, Blood 3.2 g/dL (3.4-5.0); Albumin/Globulin Ratio 0.7 (0.8-1.8); Bun/Creatinine Ratio 22.2 (12.0-20.0); Calcium, Blood 9.2 mg/dL (8.5-10.1); Creatinine, Blood 1.17 mg/dL (0.60-1.20); Globulin, Blood 4.5 g/dL (2.2-4.0); Potassium, Blood 4.5 mmol/L (3.5-5.5); Total Protein, Blood 7.7 g/dL (6.4-8.2)
[2022-09-01 02:27] LABS: Bilirubin, Total 2.1 mg/dL (0.1-1.0)
== END 2022-09-01 04:45 | disposition home or self-care (01) ==
LOC: ER 00:48
PROVIDERS: Student in an Organized Health Care Education/Training Program
DX: R07.9 Chest pain, unspecified (principal); I50.9 Heart failure, unspecified; F17.200 Nicotine dependence, unspecified, uncomplicated; Z79.899 Other long term (current) drug therapy
CPT/HCPCS: 36415; 71046; 80053; 83880; 84484; 85025; 93005; 93010; A9270; J2405

== ENCOUNTER 2022-10-23 11:05 | Observation (INO) | payer OTHER ==
[~2022-10-23] VITALS: Ht 180.3 cm; Wt 110.5 kg
[~2022-10-23 11:05] MED LIST changes: +ENTRESTO 49 MG1 EAC7 PO
[2022-10-23 11:36] LABS: Source, Urine Clean Catch
[2022-10-23 12:03] LABS: Appearance, Urine Cloudy (Clear); Bilirubin, Urine Neg (Neg); Blood, Urine 5+ (Neg); Color, Urine Yellow (P-Yellow); Glucose Qualitative, Urine Neg (Neg); Ketones, Urine Neg (Neg); Leukocyte Esterase, Urine 3+ (Neg); Nitrite, Urine Pos (Neg); Protein, Urine 2+ (Neg); Urobilinogen, Urine 1+ (Normal)
[2022-10-23 12:31] LABS: Bacteria Many /hpf; Mucus Mod (0-Heavy); Red Blood Cells, Urine 25-50 /hpf (0-2); Squamous Epithelial Cells Mod /hpf (Few)
[2022-10-23 14:41] LABS: BASOPHILS ABSOLUTE AUTO 0.09 K/mm3 (0.00-0.23); BASOPHILS PERCENT AUTO 1 % (0-2); EOSINOPHILS ABSOLUTE AUTO 0.23 K/mm3 (0.00-0.68); EOSINOPHILS PERCENT AUTO 2 % (0-6); Hematocrit 43.8 % (37.0-53.0); IMMATURE GRAN ABSOLUTE AUTO 0.03 K/mm3 (0.00-0.10); IMMATURE GRAN PERCENT AUTO 0 % (0-1); LYMPHOCYTES ABSOLUTE AUTO 0.95 K/mm3 (0.84-5.20); LYMPHOCYTES PERCENT AUTO 10 % (21-46); MONOCYTES ABSOLUTE AUTO 0.88 K/mm3 (0.16-1.47); MONOCYTES PERCENT AUTO 9 % (4-13); Mean Corpuscular HGB 26.4 pg (26.0-34.0); Mean Corpuscular Volume 83 fL (80-100); Mean Platelet Volume 9.5 fL (9.1-12.4); NEUTROPHILS ABSOLUTE AUTO 7.21 K/mm3 (1.96-9.15); NEUTROPHILS PERCENT AUTO 77 % (41-73); Platelet Count 329 K/mm3 (150-400); RDW Standard Deviation 58.1 fL (35.1-46.3); Red Blood Cell Count 5.31 M/mm3 (4.30-5.90); White Blood Cell Count 9.39 K/mm3 (4.00-11.30)
[2022-10-23 15:03] LABS: Albumin, Blood 2.7 g/dL (3.4-5.0); Albumin/Globulin Ratio 0.6 (0.8-1.8); Bilirubin, Total 2.1 mg/dL (0.1-1.0); Bun/Creatinine Ratio 23.7 (12.0-20.0); Calcium, Blood 8.5 mg/dL (8.5-10.1); Creatinine, Blood 0.8 mg/dL (0.60-1.20); Globulin, Blood 4.3 g/dL (2.2-4.0); Magnesium, Blood 2.1 mg/dL (1.6-2.4); Potassium, Blood 4.1 mmol/L (3.5-5.5)
[2022-10-23] MEDS ORDERED: POTA10T PO (17:39)
[2022-10-23] MEDS ORDERED: FURO20 PO (17:39)
[2022-10-23 18:14] LABS: Source, Urine Clean Catch
[2022-10-23 18:24] LABS: Appearance, Urine Clear (Clear); Bilirubin, Urine Neg (Neg); Blood, Urine 1+ (Neg); Color, Urine Yellow (P-Yellow); Glucose Qualitative, Urine Neg (Neg); Ketones, Urine Neg (Neg); Leukocyte Esterase, Urine 1+ (Neg); Nitrite, Urine Neg (Neg); Protein, Urine Neg (Neg); Urobilinogen, Urine NORM (Normal)
[2022-10-23 19:12] LABS: Bacteria Rare /hpf; Squamous Epithelial Cells Not Seen /hpf (Few)
--- NOTE | 2022-10-23 19:44 | NUR ---
PT ADMITTED TO ROOM 301 FROM ED BY W/C. INDEPENDENT IN ROOM. ADMISSION COMPLETED. TELE STARTED. EDEMA TO LE'S UP TO SCROTUM AND LOWER ABDOMEN. REPORT GIVEN TO ONCOMING SHIFT.
--- NOTE | 2022-10-23 22:20 | NUR ---
SPOKE WITH [facility] @ 4657. PT HAD 7 BEAT RUN OF TACHYCARDIA THAT HAD SINCE RESOLVED. PATIENT ASYMPTOMATIC. DENIES CP, SOB, DYSPNEA, ETC. RUNNING NSR AT THIS TIME. WILL CONTINUE TO MONITOR.
--- NOTE | 2022-10-24 02:31 | NUR ---
LATE NOTE. PT ASKED TO TAKE OFF TELE FOR EVENING IT IS PREVENTING HIM FROM SLEEPING. EXPLAINED NEED FOR TELE BOX. REMINDED HIM THAT HE IS ALLOWED TO REFUSE THE TELE BOX BUT THAT IT IS NOT RECOMMENDED DUE TO CURRENT CONDITION. PT UNDERSTANDS AND REFUSED TELE BOX FOR EVENING, PLANS TO PUT IT BACK ON IN THE MORNING. NOTIFIED AIRPLANE CABIN ATTENDANT.
--- NOTE | 2022-10-24 03:46 | NUR ---
SHIFT MOSTLY UNREMARKABLE. 7 BEAT RUN OF TACHYCARDIA EARLY IN SHIFT. SEE RELATED NOTE FOR DETAILS. PT HAS DENIED PAIN OF ANY KIND THROUGHOUT SHIFT. ABOUT 0000 PT REPORTED BRIEF, INTENSE FEELINGS OF ANXIETY. DENIED ANY OTHER ACCOMPANYING SYMPTOMS. QUICKLY RESOLVED ONCE PT TOOK HIS SHIRT OFF. VITAL SIGNS WERE WNL. AT ABOUT 0100 PT REQUESTED TO TAKE OFF TELE BOX FOR EVENING TO ALLOW HIM TO SLEEP. SEE RELATED NOTE FOR DETAILS. SHIFT OTHERWISE UNREMARKABLE. CALL LIGHT LEFT WITHIN REACH.
[2022-10-24 05:38] LABS: Bun/Creatinine Ratio 29.6 (12.0-20.0); Calcium, Blood 8.5 mg/dL (8.5-10.1); Creatinine, Blood 0.85 mg/dL (0.60-1.20)
--- NOTE | 2022-10-24 17:46 | NUR ---
SHIFT SUMMARY PT DOZING ON AND OFF TODAY REPORTING HE SLEPT POORLY LAST NIGHT. VOIDING WELL AND HAD MORE THAN 2 LITERS OFF. REPORTS INCREASED PAIN TO SCROTAL AREA THIS AFTERNOON. TYLENOL GIVEN. AMBULATING IN HALLWAYS. LEFT UNIT AND WHEN ASKED IF HE HAD GONE AND SMOKED HE SAID MAYBE. EXPLAINED SMOKING POLICY OF THE HOSPITAL.
--- NOTE | 2022-10-25 05:15 | NUR ---
SHIFT MOSTLY UNREMARKABLE. PAIN WELL MANAGED ON CURRENT MEDICATION REGIMEN. PT AOX4 AND COOPERATIVE WITH CARE THROUGHOUT SHIFT, PLEASANT. PT ACCIDENTALLY PULLED IV EARLY IN MORNING, REPLACED WITH NEW IV IN LEFT FOREARM. PT IS INDEPENDENT WITHIN ROOM. CALLS APPROPRIATELY. CALL LIGHT LEFT WITHIN REACH.
[2022-10-25 05:47] LABS: Albumin, Blood 2.8 g/dL (3.4-5.0); Anion Gap 7 mmol/L (6-16); Blood Urea Nitrogen 27 mg/dL (8-24); Bun/Creatinine Ratio 29.2 (12.0-20.0); CO2, Blood 28 mmol/L (21-32); Calcium, Blood 8.7 mg/dL (8.5-10.1); Chloride, Blood 102 mmol/L (98-108); Creatinine, Blood 0.93 mg/dL (0.60-1.20); Glomerular Filtration Rate 105 (60-); Glucose, Blood 91 mg/dL (70-99); Phosphorus, Blood 4.4 mg/dL (2.5-4.9); Potassium, Blood 3.9 mmol/L (3.5-5.5); Sodium, Blood 137 mmol/L (136-145)
[2022-10-25] MEDS ORDERED: MELATONIN5 M1 PO (09:49)
[2022-10-25] MEDS ORDERED: VISBIOME 112.51 EACH PO (09:50)
[2022-10-25] MEDS ORDERED: CEPH500 PO (09:51)
[2022-10-25] MEDS ORDERED: JARDIANCE10 MG PO (09:52)
--- NOTE | 2022-10-25 11:23 | NUR ---
DSCHARGE INSTRUCTIONS TO BOTH SPOUSE AND PATIENT, BOTH STATED UNDERSTANDING OF FOLLOW UP NEEDS AND MEDICATIONS FAXED TO [facility] IN [place]
== END 2022-10-25 11:38 | disposition home or self-care (01) ==
LOC: ER 11:05 → MEDS 11:06
PROVIDERS: Student in an Organized Health Care Education/Training Program; ADMIT Family Medicine
DX: I50.23 Acute on chronic systolic (congestive) heart failure (principal); N39.0 Urinary tract infection, site not specified; I08.1 Rheumatic disorders of both mitral and tricuspid valves; E87.1 Hypo-osmolality and hyponatremia; F17.210 Nicotine dependence, cigarettes, uncomplicated
CPT/HCPCS: 36415; 71046; 76870; 80048; 80053; 80069; 81001; 83735; 83880; 84145; 85025; 87077; 87086; 87186; 93005; 93010; 96374; 96375; 96376; 99285-25; A9270; G0378; J0696

== ENCOUNTER 2023-05-22 15:49 | Emergency (ER) | payer OTHER ==
[~2023-05-22] VITALS: Ht 180.3 cm; Wt 97.5 kg
[~2023-05-22 15:49] MED LIST changes: +FURO20 PO; +MELATONIN5 M1 PO; +POTA10T PO
[2023-05-22 16:32] LABS: BASOPHILS ABSOLUTE AUTO 0.07 K/mm3 (0.00-0.23); BASOPHILS PERCENT AUTO 1 % (0-2); EOSINOPHILS ABSOLUTE AUTO 0.15 K/mm3 (0.00-0.68); EOSINOPHILS PERCENT AUTO 2 % (0-6); Hematocrit 45.4 % (37.0-53.0); Hemoglobin 15.1 g/dL (13.5-17.5); IMMATURE GRAN ABSOLUTE AUTO 0.02 K/mm3 (0.00-0.10); IMMATURE GRAN PERCENT AUTO 0 % (0-1); LYMPHOCYTES ABSOLUTE AUTO 1.47 K/mm3 (0.84-5.20); LYMPHOCYTES PERCENT AUTO 21 % (21-46); MONOCYTES ABSOLUTE AUTO 0.85 K/mm3 (0.16-1.47); MONOCYTES PERCENT AUTO 12 % (4-13); Mean Corpuscular HGB 30.1 pg (26.0-34.0); Mean Corpuscular HGB Conc 33.3 g/dL (31.5-36.5); Mean Corpuscular Volume 91 fL (80-100); Mean Platelet Volume 10.3 fL (9.1-12.4); NEUTROPHILS ABSOLUTE AUTO 4.51 K/mm3 (1.96-9.15); NEUTROPHILS PERCENT AUTO 64 % (41-73); Platelet Count 235 K/mm3 (150-400); RDW Coefficient Variation 15.5 % (11.7-14.2); RDW Standard Deviation 50.5 fL (35.1-46.3); Red Blood Cell Count 5.01 M/mm3 (4.30-5.90); White Blood Cell Count 7.07 K/mm3 (4.00-11.30)
[2023-05-22 16:37] LABS: Source, Urine Clean Catch
[2023-05-22 16:42] LABS: Appearance, Urine Hazy (Clear); Bilirubin, Urine Neg (Neg); Blood, Urine 4+ (Neg); Color, Urine Yellow (P-Yellow); Glucose Qualitative, Urine Neg (Neg); Ketones, Urine Neg (Neg); Leukocyte Esterase, Urine 3+ (Neg); Nitrite, Urine Neg (Neg); Protein, Urine 2+ (Neg); Urobilinogen, Urine 2+ (Normal)
[2023-05-22 16:51] LABS: White Blood Cells, Urine TNTC /hpf (0-5)
[2023-05-22 16:52] LABS: Bacteria Many /hpf; Squamous Epithelial Cells Not Seen /hpf (Few)
[2023-05-22 17:10] LABS: Albumin, Blood 3.4 g/dL (3.4-5.0); Albumin/Globulin Ratio 0.7 (0.8-1.8); Bilirubin, Total 1.9 mg/dL (0.1-1.0); Bun/Creatinine Ratio 22.4 (12.0-20.0); Calcium, Blood 9.1 mg/dL (8.5-10.1); Creatinine, Blood 0.76 mg/dL (0.60-1.20); Globulin, Blood 4.9 g/dL (2.2-4.0); Potassium, Blood 4.2 mmol/L (3.5-5.5); Total Protein, Blood 8.3 g/dL (6.4-8.2)
[2023-05-22] MEDS ORDERED: Potassium Chlo20 ME1 PO (18:33)
[2023-05-22] MEDS ORDERED: Pyridium100 MG PO (19:23)
[2023-05-22] MEDS ORDERED: CEPH500 PO (19:23)
[2023-05-22] MEDS ORDERED: ONDA4 PO (19:23)
[2023-05-22 19:48] VITALS: BP 142/87
== END 2023-05-22 19:46 | disposition home or self-care (01) ==
LOC: ER 15:49
PROVIDERS: Physician Assistant
DX: N39.0 Urinary tract infection, site not specified (principal); Z88.8 Allergy status to other drugs, medicaments and biological substances; Z79.899 Other long term (current) drug therapy; I48.91 Unspecified atrial fibrillation; I50.9 Heart failure, unspecified
CPT/HCPCS: 71046; 80053; 81001; 83880; 85025; 87077; 87086; 87186; 93005; 93010; 99284-25; A9270

== ENCOUNTER 2023-06-16 15:27 | Emergency (ER) | payer OTHER ==
[~2023-06-16] VITALS: Ht 180.3 cm; Wt 98.4 kg
[~2023-06-16 15:27] MED LIST changes: +ONDA4 PO
[2023-06-16 16:31] LABS: Albumin, Blood 3.4 g/dL (3.4-5.0); Albumin/Globulin Ratio 0.7 (0.8-1.8); Bilirubin, Total 1.8 mg/dL (0.1-1.0); Bun/Creatinine Ratio 21.7 (12.0-20.0); Calcium, Blood 9.1 mg/dL (8.5-10.1); Creatinine, Blood 0.88 mg/dL (0.60-1.20); Globulin, Blood 5.1 g/dL (2.2-4.0); Total Protein, Blood 8.5 g/dL (6.4-8.2)
[2023-06-16 17:15] LABS: BASOPHILS ABSOLUTE AUTO 0.07 K/mm3 (0.00-0.23); BASOPHILS PERCENT AUTO 1 % (0-2); EOSINOPHILS PERCENT AUTO 2 % (0-6); Hematocrit 46.7 % (37.0-53.0); IMMATURE GRAN ABSOLUTE AUTO 0.09 K/mm3 (0.00-0.10); IMMATURE GRAN PERCENT AUTO 1 % (0-1); LYMPHOCYTES ABSOLUTE AUTO 1.16 K/mm3 (0.84-5.20); LYMPHOCYTES PERCENT AUTO 14 % (21-46); MONOCYTES ABSOLUTE AUTO 0.81 K/mm3 (0.16-1.47); MONOCYTES PERCENT AUTO 10 % (4-13); Mean Corpuscular HGB Conc 34.3 g/dL (31.5-36.5); Mean Corpuscular Volume 88 fL (80-100); NEUTROPHILS ABSOLUTE AUTO 6.08 K/mm3 (1.96-9.15); NEUTROPHILS PERCENT AUTO 72 % (41-73); RDW Standard Deviation 48.4 fL (35.1-46.3); Red Blood Cell Count 5.33 M/mm3 (4.30-5.90); White Blood Cell Count 8.41 K/mm3 (4.00-11.30)
[2023-06-16 17:18] LABS: Source, Urine Clean Catch
[2023-06-16 17:35] LABS: Appearance, Urine Cloudy (Clear); Bilirubin, Urine Neg (Neg); Blood, Urine 5+ (Neg); Color, Urine Yellow (P-Yellow); Glucose Qualitative, Urine Neg (Neg); Ketones, Urine Neg (Neg); Leukocyte Esterase, Urine 3+ (Neg); Nitrite, Urine Neg (Neg); Protein, Urine 3+ (Neg); Specific Gravity, Urine 1.025 (1.003-1.022); Urobilinogen, Urine 1+ (Normal)
[2023-06-16 17:47] LABS: White Blood Cells, Urine TNTC /hpf (0-5)
[2023-06-16 17:48] LABS: Bacteria Many /hpf; Red Blood Cells, Urine 25-50 /hpf (0-2); Squamous Epithelial Cells Rare /hpf (Few)
[2023-06-16 19:40] VITALS: BP 110/71
== END 2023-06-16 19:41 | disposition left against medical advice (07) ==
LOC: ER 15:27
PROVIDERS: Student in an Organized Health Care Education/Training Program
DX: N32.1 Vesicointestinal fistula (principal); T43.621A Poisoning by amphetamines, accidental (unintentional), initial encounter; I42.7 Cardiomyopathy due to drug and external agent; I50.9 Heart failure, unspecified; I48.91 Unspecified atrial fibrillation; F17.210 Nicotine dependence, cigarettes, uncomplicated; Z88.8 Allergy status to other drugs, medicaments and biological substances; Z79.899 Other long term (current) drug therapy
CPT/HCPCS: 72193; 80053; 81001; 85025; 87077; 87086; 87186; 96365; 99283-25; J0295; Q9967

== ENCOUNTER 2023-07-01 13:18 | Inpatient (IN) | payer OTHER ==
[~2023-07-01] VITALS: Ht 180.3 cm; Wt 101.5 kg
[2023-07-01 14:32] LABS: BASOPHILS ABSOLUTE AUTO 0.07 K/mm3 (0.00-0.23); BASOPHILS PERCENT AUTO 1 % (0-2); EOSINOPHILS ABSOLUTE AUTO 0.23 K/mm3 (0.00-0.68); EOSINOPHILS PERCENT AUTO 3 % (0-6); Hematocrit 46.3 % (37.0-53.0); Hemoglobin 15.2 g/dL (13.5-17.5); IMMATURE GRAN ABSOLUTE AUTO 0.06 K/mm3 (0.00-0.10); IMMATURE GRAN PERCENT AUTO 1 % (0-1); LYMPHOCYTES ABSOLUTE AUTO 1.15 K/mm3 (0.84-5.20); LYMPHOCYTES PERCENT AUTO 12 % (21-46); MONOCYTES ABSOLUTE AUTO 0.89 K/mm3 (0.16-1.47); MONOCYTES PERCENT AUTO 10 % (4-13); Mean Corpuscular HGB 29.8 pg (26.0-34.0); Mean Corpuscular HGB Conc 32.8 g/dL (31.5-36.5); Mean Corpuscular Volume 91 fL (80-100); Mean Platelet Volume 9.6 fL (9.1-12.4); NEUTROPHILS ABSOLUTE AUTO 6.86 K/mm3 (1.96-9.15); NEUTROPHILS PERCENT AUTO 74 % (41-73); Platelet Count 299 K/mm3 (150-400); RDW Coefficient Variation 15.9 % (11.7-14.2); RDW Standard Deviation 51.3 fL (35.1-46.3); White Blood Cell Count 9.26 K/mm3 (4.00-11.30)
[2023-07-01 15:01] LABS: Albumin, Blood 3.3 g/dL (3.4-5.0); Albumin/Globulin Ratio 0.7 (0.8-1.8); Bilirubin, Total 1.4 mg/dL (0.1-1.0); Bun/Creatinine Ratio 12.8 (12.0-20.0); Calcium, Blood 8.9 mg/dL (8.5-10.1); Creatinine, Blood 0.7 mg/dL (0.60-1.20); Globulin, Blood 4.8 g/dL (2.2-4.0); Potassium, Blood 4.3 mmol/L (3.5-5.5); Total Protein, Blood 8.1 g/dL (6.4-8.2)
[2023-07-01] MEDS ORDERED: OXYC5 (18:09)
[2023-07-01] MEDS ORDERED: FUROSEMIDE20 MG PO (18:09)
[2023-07-01] MEDS ORDERED: ONDA4ODT (18:10)
[2023-07-01 18:37] LABS: Source, Urine Clean Catch
[2023-07-01 18:43] LABS: Appearance, Urine Clear (Clear); Bilirubin, Urine Neg (Neg); Blood, Urine 3+ (Neg); Color, Urine Yellow (P-Yellow); Glucose Qualitative, Urine Neg (Neg); Ketones, Urine Neg (Neg); Leukocyte Esterase, Urine 3+ (Neg); Nitrite, Urine Neg (Neg); Protein, Urine 1+ (Neg); Specific Gravity, Urine 1.015 (1.003-1.022); Urobilinogen, Urine 1+ (Normal)
[2023-07-01 18:56] LABS: Bacteria Many /hpf; Squamous Epithelial Cells Rare /hpf (Few); White Blood Cells, Urine 25-50 /hpf (0-5)
--- NOTE | 2023-07-02 04:30 | NUR ---
ASSUMED CARE PATIENT ARRIVED TO ICU VIA WHEELCHAIR, A&O X 4. NS @ 75ML/HR TO 20G LT AC IV. BELONGINGS WITH PATIENT AND WAITING OUTSIDE OF UNIT. PATIENT ABLE TO STAND AND TRANSFER TO BED ON OWN. REPORT RECEIVED FROM CHELSEA JIMENEZ RN.
[2023-07-02 04:44] LABS: Hematocrit 42.9 % (37.0-53.0); Hemoglobin 14.1 g/dL (13.5-17.5); Mean Corpuscular HGB 29.7 pg (26.0-34.0); Mean Corpuscular HGB Conc 32.9 g/dL (31.5-36.5); Mean Corpuscular Volume 90 fL (80-100); Mean Platelet Volume 9.6 fL (9.1-12.4); Platelet Count 247 K/mm3 (150-400); RDW Standard Deviation 52.3 fL (35.1-46.3); Red Blood Cell Count 4.75 M/mm3 (4.30-5.90); White Blood Cell Count 9.13 K/mm3 (4.00-11.30)
[2023-07-02 04:47] VITALS: BP 106/90
[2023-07-02 05:07] LABS: Albumin, Blood 2.9 g/dL (3.4-5.0); Albumin/Globulin Ratio 0.7 (0.8-1.8); Bilirubin, Total 1.3 mg/dL (0.1-1.0); Bun/Creatinine Ratio 15.4 (12.0-20.0); Calcium, Blood 8.6 mg/dL (8.5-10.1); Creatinine, Blood 0.84 mg/dL (0.60-1.20); Globulin, Blood 4.3 g/dL (2.2-4.0); Potassium, Blood 3.9 mmol/L (3.5-5.5); Total Protein, Blood 7.2 g/dL (6.4-8.2)
[2023-07-02 05:27] LABS: BAND PERCENT MAN 6 % (0-8); BASOPHILS PERCENT MAN 0 % (0-2); EOSINOPHILS ABSOLUTE MAN 0.54 K/mm3 (0.00-0.68); EOSINOPHILS PERCENT MAN 6 % (0-6); LYMPHOCYTES ABSOLUTE MAN 1.18 K/mm3 (0.84-5.20); LYMPHOCYTES PERCENT MAN 13 % (21-46); MONOCYTES ABSOLUTE MAN 1.18 K/mm3 (0.16-1.47); MONOCYTES PERCENT MAN 13 % (4-13); SEG NEUTROPHILS PERCENT MAN 62 % (41-73); TOTAL CELLS COUNTED 100
--- NOTE | 2023-07-02 06:14 | NUR ---
SHIFT SUMMARY PATIENT PLACED ON 2LPM VIA NC FOR DYSPNEA AND INCREASED WORK OF BREATHING. SPO2 DROPS TO 85% AT LOWEST. LUNG SOUNDS COARSE T/O. LASIX 40MG IV QD STARTED AND RESTARTING PATIENT'S HOME POTASSIUM. FLUIDS ON SB. PATIENT'S AT BEDSIDE. STILL PENDING TRANSFER BED FOR HIGHER LEVEL OF CARE.
[2023-07-02 08:49] VITALS: BP 117/78
--- NOTE | 2023-07-02 16:00 | NUR ---
PT OUT OF ROOM AMBULATING
--- NOTE | 2023-07-02 17:32 | NUR ---
SUMMARY PT A/O X4, INDEP IN ROOM AND AMB T/O HOSPITAL. C/O LEG CRAMPS/SPASMS TODAY, TYLENOL GIVEN AND AMBULATING HELPS. PT WEARS JOCK STRAP FOR SWOLLEN SCROTUM. ABLE TO URINATE WITHOUT ISSUE. IV ANTIBIOTICS CONTINUE. NO SIGN OF DISTRESS. PT TRANSFERED TO ROOM 310.
--- NOTE | 2023-07-02 19:01 | NUR ---
PT TRANSFERED FROM ICU APPROX 1730 WITH AND BELONGINGS. INDEPENDENT IN ROOM. SHOWER TAKEN. WILL REPORT CONDITION TO ONCOMING SHIFT.
[2023-07-02 19:39] VITALS: BP 111/87
[2023-07-03 03:12] VITALS: BP 123/94
--- NOTE | 2023-07-03 04:37 | NUR ---
SHIFT SUMMARY: PT IS ALERT AND ORIENTED. PT HAS A SLIGHTLY AGITATED DEMEANOR AND IS ONLY PARTIALLY COOPERATIVE WITH CARE. PT REFUSED TWO DOSES OF IV ABX BECAUSE HE BELIEVES HE IS FLUID OVERLOADED. PT REQUESTED A DOSE OF LASIX NEAR SHIFT CHANGE, CALLED CHELSEA AND ASKED FOR ONE, CHELSEA DID NOT FEEL LIKE IT WAS NECESSARY AT THIS TIME. PT REPORTS PAIN ON SEVERAL OCCASIONS, MEDICATING PER EMAR. PT REPORTS CONSTIPATION, CALLED CHELSEA AND RECEIVED AN ORDER FOR BOWEL CARE. PT REPORTS RELIEF FROM HAVING A BOWEL MOVEMENT. PT REPORTS NAUSEA ON ONE OCCASION, ZOFRAN WAS GIVEN. PT DENIES SOB. TRANSFER FOR HIGHER LEVEL OF CARE PENDING. BED IN LOW POSITION, CALL LIGHT WITHIN REACH. WILL CONTINUE TO MONITOR.
[2023-07-03 07:52] VITALS: BP 91/60
[2023-07-03 09:13] LABS: BASOPHILS ABSOLUTE AUTO 0.05 K/mm3 (0.00-0.23); BASOPHILS PERCENT AUTO 1 % (0-2); EOSINOPHILS ABSOLUTE AUTO 0.23 K/mm3 (0.00-0.68); EOSINOPHILS PERCENT AUTO 3 % (0-6); Hematocrit 45.3 % (37.0-53.0); Hemoglobin 14.8 g/dL (13.5-17.5); IMMATURE GRAN ABSOLUTE AUTO 0.03 K/mm3 (0.00-0.10); IMMATURE GRAN PERCENT AUTO 0 % (0-1); LYMPHOCYTES ABSOLUTE AUTO 1.02 K/mm3 (0.84-5.20); LYMPHOCYTES PERCENT AUTO 11 % (21-46); MONOCYTES ABSOLUTE AUTO 0.51 K/mm3 (0.16-1.47); MONOCYTES PERCENT AUTO 6 % (4-13); Mean Corpuscular HGB 29.8 pg (26.0-34.0); Mean Corpuscular HGB Conc 32.7 g/dL (31.5-36.5); Mean Corpuscular Volume 91 fL (80-100); Mean Platelet Volume 9.3 fL (9.1-12.4); NEUTROPHILS ABSOLUTE AUTO 7.27 K/mm3 (1.96-9.15); NEUTROPHILS PERCENT AUTO 80 % (41-73); Platelet Count 242 K/mm3 (150-400); RDW Coefficient Variation 16.2 % (11.7-14.2); Red Blood Cell Count 4.97 M/mm3 (4.30-5.90); White Blood Cell Count 9.11 K/mm3 (4.00-11.30)
[2023-07-03 09:38] LABS: Vancomycin, Trough 8.5 ug/mL (5.0-10.0)
[2023-07-03 09:40] LABS: Albumin/Globulin Ratio 0.7 (0.8-1.8); Bilirubin, Total 2.4 mg/dL (0.1-1.0); Bun/Creatinine Ratio 19.3 (12.0-20.0); Calcium, Blood 8.4 mg/dL (8.5-10.1); Creatinine, Blood 0.72 mg/dL (0.60-1.20); Globulin, Blood 4.6 g/dL (2.2-4.0); Potassium, Blood 4.4 mmol/L (3.5-5.5); Total Protein, Blood 7.6 g/dL (6.4-8.2)
[2023-07-03 15:20] VITALS: BP 110/83
--- NOTE | 2023-07-03 19:04 | NUR ---
SHIFT SUMMARY INDEPENDENT IN ROOM. MEDICATED FOR PAIN NEEDED FOR SCROTAL PAIN. ACCEPTED IV ANTIBIOTICS SCHEDULED. AT BEDSIDE MOST OF SHIFT. STATES HE FEELS A BIT BETTER THAN YESTERDAY.
[2023-07-03 19:14] VITALS: BP 103/75
[2023-07-04 03:00] VITALS: BP 114/78
[2023-07-04 05:28] LABS: BASOPHILS ABSOLUTE AUTO 0.05 K/mm3 (0.00-0.23); BASOPHILS PERCENT AUTO 1 % (0-2); EOSINOPHILS ABSOLUTE AUTO 0.18 K/mm3 (0.00-0.68); EOSINOPHILS PERCENT AUTO 2 % (0-6); Hematocrit 43.8 % (37.0-53.0); Hemoglobin 14.2 g/dL (13.5-17.5); IMMATURE GRAN ABSOLUTE AUTO 0.04 K/mm3 (0.00-0.10); IMMATURE GRAN PERCENT AUTO 1 % (0-1); LYMPHOCYTES ABSOLUTE AUTO 1.29 K/mm3 (0.84-5.20); LYMPHOCYTES PERCENT AUTO 15 % (21-46); MONOCYTES ABSOLUTE AUTO 0.67 K/mm3 (0.16-1.47); MONOCYTES PERCENT AUTO 8 % (4-13); Mean Corpuscular HGB 29.9 pg (26.0-34.0); Mean Corpuscular HGB Conc 32.4 g/dL (31.5-36.5); Mean Corpuscular Volume 92 fL (80-100); Mean Platelet Volume 9.6 fL (9.1-12.4); NEUTROPHILS ABSOLUTE AUTO 6.14 K/mm3 (1.96-9.15); NEUTROPHILS PERCENT AUTO 73 % (41-73); Platelet Count 236 K/mm3 (150-400); RDW Standard Deviation 54.1 fL (35.1-46.3); Red Blood Cell Count 4.75 M/mm3 (4.30-5.90); White Blood Cell Count 8.37 K/mm3 (4.00-11.30)
--- NOTE | 2023-07-04 05:28 | NUR ---
NO ACUTE CHANGES NOTED. PATIENT IS A/O X4, INDEPENDENT IN ROOM, AND CALLS APPROPRIATELY. IN AT BEDSIDE T/O SHIFT. PATIENT UP IN BENITEZ FOR A WALK WITH . PATIENT REQUEST FOR MILK OF MAG-HOSPITALIST ORDERED ONE TIME DOSE.PATIENT C/O PAIN UNRESOLVED BY PO MEDICATION-HOSPITALIST ORDERED ONE TIME DOSE OF DILAUDID-SEE ORDER HISTORY. PATIENT CALLS APPROPRIATELY AND IS ABLE TO MAKE NEEDS KNOWN. PATIENT INDEPENDENT IN ROOM. BED IS LOCKED IN THE LOWEST POSITION WITH CALL LIGHT IN REACH.
[2023-07-04 06:03] LABS: Bun/Creatinine Ratio 24.3 (12.0-20.0); Calcium, Blood 8.8 mg/dL (8.5-10.1); Creatinine, Blood 0.74 mg/dL (0.60-1.20); Potassium, Blood 4.7 mmol/L (3.5-5.5)
[2023-07-04 07:46] VITALS: BP 116/83
[2023-07-04 16:29] VITALS: BP 107/79
--- NOTE | 2023-07-04 19:40 | NUR ---
SHIFT SUMMARY; PATIENT HAD UNEVENTFUL DAY. NO ACUTE CHANGES IN CONDITION NOTED. HE REMAINS PLEASANT AND IS COOPERATIVE WITH CARE. MEDICATED X 2 WITH PAIN MEDICATIONS FOR SCROTUM PAIN.
[2023-07-04 19:52] VITALS: BP 102/73
[2023-07-05 05:08] VITALS: BP 104/81
--- NOTE | 2023-07-05 05:15 | NUR ---
SHIFT SUMMARY NO ACUTE CHANGES. PATIENT INDEPENDENT IN ROOM. UP AND DOWN T/O NIGHT. PATIENT WAS SLIGHTLY DISCOURAGED THAT HE WOULD BE GOING HOME AND NOT TRANSFERED FOR SURGERY. BED IS LOCKED IN THE LOWEST POSITION WITH CALL LIGHT IN REACH.
[2023-07-05 06:16] LABS: Bun/Creatinine Ratio 25.1 (12.0-20.0); Calcium, Blood 8.6 mg/dL (8.5-10.1); Creatinine, Blood 0.8 mg/dL (0.60-1.20); Potassium, Blood 4.1 mmol/L (3.5-5.5)
[2023-07-05 07:44] VITALS: BP 119/80
[2023-07-05] MEDS ORDERED: AMOCLA875 PO (11:25)
[2023-07-05] MEDS ORDERED: LACT PO (11:25)
[2023-07-05] MEDS ORDERED: TORSE20 PO (11:26)
--- NOTE | 2023-07-05 12:33 | NUR ---
DISCHARGE NOTE PT DISCHARGED TO HOME, PICKED UP BY HIS . DISCHARGE EDUCATION AND INFORMATION PROVIDED TO THE PT. MEDICATIONS FAXED TO THE PHARMACY OF HIS CHOICE. IV REMOVED, TELE RETURNED. PESRONAL BELONGINGS RETURNED.
== END 2023-07-05 12:33 | disposition home or self-care (01) | DRG 727 ==
LOC: ER 13:18 → ERHOLD 20:57 → MEDS 20:57 → ICUE 20:57 → MEDS 07-02 17:27
PROVIDERS: Emergency Medicine; Family Medicine; Physician Assistant; ADMIT Internal Medicine
DX: N49.2 Inflammatory disorders of scrotum (principal); I50.23 Acute on chronic systolic (congestive) heart failure; I42.8 Other cardiomyopathies; N32.1 Vesicointestinal fistula; N44.00 Torsion of testis, unspecified; F17.210 Nicotine dependence, cigarettes, uncomplicated; F15.90 Other stimulant use, unspecified, uncomplicated; R79.89 Other specified abnormal findings of blood chemistry; R82.71 Bacteriuria; I48.91 Unspecified atrial fibrillation; N43.3 Hydrocele, unspecified; K80.20 Calculus of gallbladder without cholecystitis without obstruction; F32.A Depression, unspecified; Z79.01 Long term (current) use of anticoagulants; Z79.899 Other long term (current) drug therapy; Z87.19 Personal history of other diseases of the digestive system; Z88.8 Allergy status to other drugs, medicaments and biological substances; Z79.891 Long term (current) use of opiate analgesic
CPT/HCPCS: 36415; 74177; 76870; 80048; 80053; 80202; 81001; 83880; 85025; 87086; 96361; 96365; 96375; 96376; 99285-25; A9270; J0295; J1170; J1650; J1885; J1940; J2405; J3370; J7030; J7050; Q9967

== ENCOUNTER 2024-05-01 12:05 | Emergency (ER) | payer OTHER ==
[~2024-05-01] VITALS: Ht 180.3 cm; Wt 99.3 kg
[~2024-05-01 12:05] MED LIST changes: +LACT PO; +ONDA4ODT; +OXYC5; +TORSE20 PO
[2024-05-01 12:42] LABS: BASOPHILS ABSOLUTE AUTO 0.11 K/mm3 (0.00-0.23); BASOPHILS PERCENT AUTO 2 % (0-2); EOSINOPHILS ABSOLUTE AUTO 0.09 K/mm3 (0.00-0.68); EOSINOPHILS PERCENT AUTO 1 % (0-6); Hematocrit 42.8 % (37.0-53.0); Hemoglobin 14.1 g/dL (13.5-17.5); IMMATURE GRAN ABSOLUTE AUTO 0.02 K/mm3 (0.00-0.10); IMMATURE GRAN PERCENT AUTO 0 % (0-1); LYMPHOCYTES ABSOLUTE AUTO 1.49 K/mm3 (0.84-5.20); LYMPHOCYTES PERCENT AUTO 20 % (21-46); MONOCYTES ABSOLUTE AUTO 0.66 K/mm3 (0.16-1.47); MONOCYTES PERCENT AUTO 9 % (4-13); Mean Corpuscular HGB 30.1 pg (26.0-34.0); Mean Corpuscular HGB Conc 32.9 g/dL (31.5-36.5); Mean Corpuscular Volume 91 fL (80-100); Mean Platelet Volume 9.7 fL (9.1-12.4); NEUTROPHILS ABSOLUTE AUTO 4.93 K/mm3 (1.96-9.15); NEUTROPHILS PERCENT AUTO 68 % (41-73); Platelet Count 310 K/mm3 (150-400); RDW Standard Deviation 53.2 fL (35.1-46.3); Red Blood Cell Count 4.69 M/mm3 (4.30-5.90)
[2024-05-01] MEDS ORDERED: Prinivil10 MG PO (13:00)
[2024-05-01] MEDS ORDERED: CARV3.125 PO (13:00)
[2024-05-01 13:11] LABS: Albumin, Blood 3.3 g/dL (3.4-5.0); Albumin/Globulin Ratio 0.8 (0.8-1.8); Bilirubin, Total 3.2 mg/dL (0.1-1.0); Bun/Creatinine Ratio 27.4 (12.0-20.0); Creatinine, Blood 1.13 mg/dL (0.60-1.20); Potassium, Blood 4.3 mmol/L (3.5-5.5); Total Protein, Blood 7.3 g/dL (6.4-8.2)
[2024-05-01] MEDS ORDERED: Furosemide 10 MG/ML 4ML Vial IV ONE (13:55)
[2024-05-01] MEDS ORDERED: Carvedilol 3.125 MG Tab PO ONE (14:10)
[2024-05-01] MEDS ORDERED: OxyCODONE HCL 5 MG TAB PO ONE (14:10)
[2024-05-01 17:07] VITALS: BP 124/87
== END 2024-05-01 17:07 | disposition home or self-care (01) ==
LOC: ER 12:05
PROVIDERS: Physician Assistant
DX: I42.8 Other cardiomyopathies (principal); I50.20 Unspecified systolic (congestive) heart failure; I48.91 Unspecified atrial fibrillation; F17.210 Nicotine dependence, cigarettes, uncomplicated; Z79.899 Other long term (current) drug therapy; Z88.8 Allergy status to other drugs, medicaments and biological substances
CPT/HCPCS: 71046; 80053; 83880; 84484; 85025; 93005; 93010; 96374; 99285-25; A9270; J1940

== ENCOUNTER 2024-05-17 12:05 | Inpatient (IN) | payer OTHER ==
[~2024-05-17] VITALS: Ht 180.3 cm; Wt 96.3 kg
[~2024-05-17 12:05] MED LIST changes: +KLOR-CON 1010 ME1 PO
[2024-05-17 13:24] LABS: BASOPHILS ABSOLUTE AUTO 0.11 K/mm3 (0.00-0.23); BASOPHILS PERCENT AUTO 1 % (0-2); EOSINOPHILS ABSOLUTE AUTO 0.17 K/mm3 (0.00-0.68); EOSINOPHILS PERCENT AUTO 2 % (0-6); Hematocrit 42.5 % (37.0-53.0); IMMATURE GRAN ABSOLUTE AUTO 0.02 K/mm3 (0.00-0.10); IMMATURE GRAN PERCENT AUTO 0 % (0-1); LYMPHOCYTES PERCENT AUTO 20 % (21-46); MONOCYTES ABSOLUTE AUTO 0.79 K/mm3 (0.16-1.47); MONOCYTES PERCENT AUTO 10 % (4-13); Mean Corpuscular HGB 29.7 pg (26.0-34.0); Mean Corpuscular HGB Conc 32.9 g/dL (31.5-36.5); Mean Corpuscular Volume 90 fL (80-100); Mean Platelet Volume 9.4 fL (9.1-12.4); NEUTROPHILS PERCENT AUTO 67 % (41-73); Platelet Count 271 K/mm3 (150-400); RDW Coefficient Variation 16.3 % (11.7-14.2); RDW Standard Deviation 53.7 fL (35.1-46.3); Red Blood Cell Count 4.71 M/mm3 (4.30-5.90); White Blood Cell Count 8.19 K/mm3 (4.00-11.30)
[2024-05-17 13:38] LABS: Albumin, Blood 3.2 g/dL (3.4-5.0); Albumin/Globulin Ratio 0.7 (0.8-1.8); Bilirubin, Total 2.5 mg/dL (0.1-1.0); Bun/Creatinine Ratio 21.1 (12.0-20.0); Calcium, Blood 8.9 mg/dL (8.5-10.1); Creatinine, Blood 0.95 mg/dL (0.60-1.20); Globulin, Blood 4.5 g/dL (2.2-4.0); Potassium, Blood 3.9 mmol/L (3.5-5.5); Total Protein, Blood 7.7 g/dL (6.4-8.2)
[2024-05-17 17:23] LABS: U Amphetamine Screen Not Detected; U Barbituate Screen Not Detected; U Benzodiazapine Screen Not Detected; U Buprenorphine Screen Not Detected; U Cannabinoids Screen Not Detected; U Cocaine Screen Not Detected; U Methadone Screen Not Detected; U Methamphetamine Screen Not Detected; U Opiates Screen Not Detected; U Oxycodone Screen Not Detected; U Phencyclidine Screen Not Detected
[2024-05-17] MEDS ORDERED: Morphine Sulfate 4 MG/1 ML Injection IV ONE (18:20)
[2024-05-17] MEDS ORDERED: Ondansetron HCl 2 MG / ML 2ML Vial IV ONE (18:20)
[2024-05-17] MEDS ORDERED: NS 1,000 ML IV SCH (18:20)
[2024-05-17 19:08] LABS: Source, Urine Clean Catch
[2024-05-17 19:20] LABS: Influenza A, PCR NEGATIVE (NEGATIVE); Influenza B, PCR NEGATIVE (NEGATIVE); Resp Syncytial Virus, PCR NEGATIVE (NEGATIVE); SARS-Cov-2 (COVID-19) PCR, MMC NEGATIVE (NEGATIVE)
[2024-05-17 20:17] LABS: Appearance, Urine Clear (Clear); Bilirubin, Urine Neg (Neg); Blood, Urine 2+ (Neg); Color, Urine Yellow (P-Yellow); Glucose Qualitative, Urine Neg (Neg); Ketones, Urine Neg (Neg); Leukocyte Esterase, Urine 2+ (Neg); Nitrite, Urine Neg (Neg); Protein, Urine Neg (Neg); Urobilinogen, Urine NORM (Normal)
[2024-05-17 20:23] LABS: Bacteria Mod /hpf; Squamous Epithelial Cells Rare /hpf (Few)
[2024-05-17] MEDS ORDERED: CefTRIAXone Sodium 1,000 MG in NS 100 ML IV ONE (20:35)
[2024-05-17] MEDS ORDERED: Furosemide 10 MG / ML 2ML Vial IV ONE (21:40)
[2024-05-17] MEDS ORDERED: Ondansetron HCl 2 MG / ML 2ML Vial IV PRN (22:45)
[2024-05-17] MEDS ORDERED: FLU VACC TS2024-25(6MOS UP)/PF 45 MCG/0.5 ML SYRINGE IM SCH (22:45)
[2024-05-17] MEDS ORDERED: Enoxaparin 40 MG/0.4 ML SYR SC SCH (23:00)
[2024-05-18 00:51] VITALS: BP 113/91
[2024-05-18] MEDS ORDERED: FentaNYL Citrate 50 MCG/ML 2 ML Injection IV PRN (01:20)
[2024-05-18 01:33] LABS: BASOPHILS PERCENT AUTO 1 % (0-2); EOSINOPHILS ABSOLUTE AUTO 0.14 K/mm3 (0.00-0.68); EOSINOPHILS PERCENT AUTO 2 % (0-6); Hematocrit 42.2 % (37.0-53.0); Hemoglobin 13.7 g/dL (13.5-17.5); IMMATURE GRAN ABSOLUTE AUTO 0.02 K/mm3 (0.00-0.10); IMMATURE GRAN PERCENT AUTO 0 % (0-1); LYMPHOCYTES ABSOLUTE AUTO 1.42 K/mm3 (0.84-5.20); LYMPHOCYTES PERCENT AUTO 18 % (21-46); MONOCYTES ABSOLUTE AUTO 0.77 K/mm3 (0.16-1.47); MONOCYTES PERCENT AUTO 10 % (4-13); Mean Corpuscular HGB 29.4 pg (26.0-34.0); Mean Corpuscular HGB Conc 32.5 g/dL (31.5-36.5); Mean Corpuscular Volume 91 fL (80-100); Mean Platelet Volume 9.5 fL (9.1-12.4); NEUTROPHILS ABSOLUTE AUTO 5.49 K/mm3 (1.96-9.15); NEUTROPHILS PERCENT AUTO 69 % (41-73); Platelet Count 271 K/mm3 (150-400); RDW Coefficient Variation 16.4 % (11.7-14.2); Red Blood Cell Count 4.66 M/mm3 (4.30-5.90); White Blood Cell Count 7.94 K/mm3 (4.00-11.30)
[2024-05-18 01:50] LABS: Albumin, Blood 3.2 g/dL (3.4-5.0); Albumin/Globulin Ratio 0.8 (0.8-1.8); Bilirubin, Total 2.9 mg/dL (0.1-1.0); Bun/Creatinine Ratio 21.5 (12.0-20.0); Calcium, Blood 8.9 mg/dL (8.5-10.1); Creatinine, Blood 0.84 mg/dL (0.60-1.20); Globulin, Blood 4.1 g/dL (2.2-4.0); Potassium, Blood 4.4 mmol/L (3.5-5.5); Total Protein, Blood 7.3 g/dL (6.4-8.2)
[2024-05-18] MEDS ORDERED: ENTRESTO 24 MG1 EACH PO (03:20)
[2024-05-18 03:41] VITALS: BP 112/80
--- NOTE | 2024-05-18 06:21 | NUR ---
SHIFT SUMMARY: TERE IS A&OX4. VSS, TACHYCARDIA STABLE, TELE IN PLACE. PT HAD A 9 BEAT RUN OF VTACH PER FEED MILL TENDER, PT ASYMPTOMATIC. LUNGS WITH CRACKLES IN BASES, IV TO LEFT FOREARM PATENT. HE IS INDEPENDENT IN THE ROOM AND TOLERATING PO INTAKE WELL, NO SWALLOWING DIFFICULTIES. HE IS LYING IN BED WITH THE CALL LIGHT IN REACH, BED IN LOWEST POSITION. WILL GIVE REPORT TO DAY SHIFT RN.
[2024-05-18 07:32] VITALS: BP 111/84
[2024-05-18] MEDS ORDERED: Furosemide 10 MG/ML 4ML Vial IV SCH ×2 (09:00)
[2024-05-18] MEDS ORDERED: Sacubitril/Valsartan 24 MG-26 MG Tab PO SCH (09:00)
[2024-05-18] MEDS ORDERED: Metoprolol Succinate 25 MG TABCR PO SCH (09:00)
[2024-05-18] MEDS ORDERED: Potassium Chloride 20 MEQ TabCR PO SCH (09:00)
[2024-05-18] MEDS ORDERED: HYDROmorphone HCl/Pf 1MG SYR IV PRN (14:35)
[2024-05-18] MEDS ORDERED: Bumetanide 0.25 MG/ML 4ML ViaL IV SCH ×2 (15:00→18:00)
[2024-05-18 16:32] VITALS: BP 108/81
--- NOTE | 2024-05-18 17:54 | NUR ---
REPORT RECEIVED VERIFIED. A/O IND IN RM, C/O NAUSEA AND ABD PAIN. ECHO DONE THIS AM, NO SIGNIFICANT CHANGE FROM PREVIOUS EXAM, AT BEDSIDE. PT LOW URINE OUTPUT REPORTED TO MD, NEW ORDERS FOR BUMEX AND CHANGE IN PAIN MEDICATION. PT IS APPROPRIATE AND MAKES NEEDS KNOWN
[2024-05-18 19:19] VITALS: BP 94/71
[2024-05-18] MEDS ORDERED: NS 250 ML IV PRN (20:00)
--- NOTE | 2024-05-18 20:00 | NUR ---
PT REPORTS HE HAS NAUSEA, BUT DECLINES ANY ANTI NAUSEA MEDICATION. PT REPORTS HIS PAIN "OKAY" RIGHT NOW - DENIES REQUEST FOR PAIN MEDICATION. PT REPORTS SOB - SATS WNL WITH VITAL SIGNS - RESPIRATIONS EVEN AND UNLABORED. LUNG SOUNDS ARE CLEAR THROUGHOUT. PT INSTRUCTED TO CALL IF NAUSEA OR PAIN INCREASE, AND IF SOB INCREASES - VERBALIZED UNDERSTANDING. IS PRESENT IN THE ROOM. PT PROVIDED WITH ICE WATER, NO FURTHER REQUESTS AT THIS TIME. WILL CONTINUE TO MONITOR THROUGHOUT THE NIGHT. CALL LIGHT WITHIN REACH. BED IN LOW POSITION.
[2024-05-18] MEDS ORDERED: CefTRIAXone Sodium 1,000 MG in NS 100 ML IV SCH (21:00)
[2024-05-18] MEDS ORDERED: Lactobacil 2-S.Thermo-Bifido 1 1 Cap PO SCH (21:00)
--- NOTE | 2024-05-18 21:09 | NUR ---
PT DENIES ANY REQUESTS AT THIS TIME. PT RESTING IN BED. CALL LIGHT WITHIN REACH. FLUIDS AT BEDSIDE. BED IN LOW POSITION.
[2024-05-19] VITALS (9 sets, daily range): BP systolic 86–117; BP diastolic 59–92
--- NOTE | 2024-05-19 01:30 | NUR ---
PT INDEPENDENT TO BRP - SHAVED AND SHOWERED. PT DENIES ANY REQUESTS AT THIS TIME. PT IN HIGH SEMI FOWLERS POSITION IN BED. FLUIDS AT BEDSIDE. CALL LIGHT WITHIN REACH. BED IN LOW POSITION.
--- NOTE | 2024-05-19 05:28 | NUR ---
SHIFT SUMMARY - NO ACUTE CHANGES THROUGHOUT THIS SHIFT. PT MEDICATED X1 FOR PAIN WITH GOOD RELIEF, AND X1 FOR NAUSEA. PT REPORTING HAVING DRY HEAVES. PT WAS ABLE TO SHOWER/SHAVE INDEPENDENTLY LAST NOC. NO FURTHER EPISODES OF NAUSEA REPORTED. PT IS CURRENTLY SLEEPING IN BED - RESPIRATIONS EVEN AND UNLABORED. FLUIDS AT BEDSIDE. CALL LIGHT WITHIN REACH. BED IN LOW POSITION. WILL CONTINUE TO MONITOR UNTIL AM SHIFT CHANGE.
[2024-05-19 05:32] LABS: BASOPHILS ABSOLUTE AUTO 0.04 K/mm3 (0.00-0.23); BASOPHILS PERCENT AUTO 0 % (0-2); EOSINOPHILS PERCENT AUTO 0 % (0-6); Hematocrit 41.9 % (37.0-53.0); Hemoglobin 13.6 g/dL (13.5-17.5); IMMATURE GRAN ABSOLUTE AUTO 0.04 K/mm3 (0.00-0.10); IMMATURE GRAN PERCENT AUTO 0 % (0-1); LYMPHOCYTES ABSOLUTE AUTO 1.05 K/mm3 (0.84-5.20); LYMPHOCYTES PERCENT AUTO 11 % (21-46); MONOCYTES ABSOLUTE AUTO 1.11 K/mm3 (0.16-1.47); MONOCYTES PERCENT AUTO 12 % (4-13); Mean Corpuscular HGB 29.4 pg (26.0-34.0); Mean Corpuscular HGB Conc 32.5 g/dL (31.5-36.5); Mean Corpuscular Volume 91 fL (80-100); Mean Platelet Volume 9.9 fL (9.1-12.4); NEUTROPHILS ABSOLUTE AUTO 7.14 K/mm3 (1.96-9.15); NEUTROPHILS PERCENT AUTO 76 % (41-73); Platelet Count 270 K/mm3 (150-400); RDW Coefficient Variation 16.1 % (11.7-14.2); RDW Standard Deviation 53.1 fL (35.1-46.3); Red Blood Cell Count 4.63 M/mm3 (4.30-5.90); White Blood Cell Count 9.38 K/mm3 (4.00-11.30)
[2024-05-19 05:50] LABS: Albumin, Blood 3.1 g/dL (3.4-5.0); Albumin/Globulin Ratio 0.7 (0.8-1.8); Bilirubin, Total 4.5 mg/dL (0.1-1.0); Bun/Creatinine Ratio 27.3 (12.0-20.0); Calcium, Blood 9.4 mg/dL (8.5-10.1); Creatinine, Blood 0.99 mg/dL (0.60-1.20); Globulin, Blood 4.2 g/dL (2.2-4.0); Potassium, Blood 4.9 mmol/L (3.5-5.5); Total Protein, Blood 7.3 g/dL (6.4-8.2)
[2024-05-19] MEDS ORDERED: Sacubitril/Valsartan 49 MG/51 MG Tab PO SCH (08:00)
[2024-05-19] MEDS ORDERED: Sacubitril/Valsartan 24 MG-26 MG Tab PO SCH (09:00)
[2024-05-19] MEDS ORDERED: Metolazone 2.5 MG Tab PO SCH (09:00)
[2024-05-19] MEDS ORDERED: Bumetanide 0.25 MG/ML 4ML ViaL IV SCH ×2 (09:00→18:00)
[2024-05-19] MEDS ORDERED: TraMADol HCl 50 MG Tab PO PRN (12:00)
--- NOTE | 2024-05-19 14:28 | NUR ---
NOTE TELE REPORTED PT HAVING A 10 BEAT RUN OF V-TACH. NOTIFIED DR. COPPOLA, NO NEW ORDERS AT THIS TIME.
--- NOTE | 2024-05-19 17:50 | NUR ---
SHIFT SUMMARY PT A&OX4. PT ADMITTED DUE TO ACUTE CHF. PT REPORTS DYSPNEA ON EXERTION. PT ON STRICT I&O'S, AND FOLLOWING FLUID RESTRICTION OF 1500ML'S. PT ON TELE. PT VOIDS USING URINAL. PT HAD 650 OUTPUT OF URINE DURING SHIFT. PT HAS HAD SOFT BP'S. LAST BLOOD PRESSURE WAS 90/70. HR 81. CALLED DR. GUILLEN TO CONFIRM TO STILL GIVE METOLAZONE AND BUMEX ORDERED. PER DR. GUILLEN GIVE METALAZONE 2.5MG AND BUMEX 2MG IV. KEEP BUMEX 4MG ON EMAR. PT INDEPENDENT IN ROOM. PT REPORTS CHRONIC BACK PAIN. PT MEDICATED PER EMAR. PT CALLS APROPRIATELY, CALL LIGHT IN REACH.
[2024-05-20 03:47] VITALS: BP 86/63
--- NOTE | 2024-05-20 04:04 | NUR ---
SHIFT SUMMARY: PT ALERT ORIENTED X 4 ABLE TO VERBALIZE NEEDS. C/O BACK PAIN MEDICATED WITH TRAMADOL WITH GOOD RELIEF. GETS UP AD EUFEMIA IN ROOM AMBULATES TO BATHROOM. REMAINS ON A 1500ML FLUID RESTRICTION AND STRICT I&O. HE TRIES TO BE NONCOMPLIANT AND GETS UPSET IF HE CANT HAVE OVEER HIS RESTRICTION. HIS BP THIS EVENING HAS BEEN LOW AT 87/69 AND 86/63 AND HE HAD A 5 BEAT RUN OF V TACH. DR. EMERSON WAS INFORMED. ALL OTHER VS ARE STABLE ON RA SATTING AT 96%. REMAINS ON TELEMETRY AT R AT A RATE OF 81. NO C/O NAUSEA OR VOMITING THIS SHIFT. DOES C/O SOB ON EXERTION. RESTING IN BED AT THIS TIME.
--- NOTE | 2024-05-20 04:14 | NUR ---
PTS BP HAS BEEN 87/69 AND 86/63 THIS EVENING. HES HAVING NO SYMTOMS. HE ALSO HAD A 5 BEAT RUN OF VTACH THIS EVENING. ATTEMPTED TO CALL THE RESIDENT DR. FRIED BUT IT SAYS THAT THE NUMBER IS DISCONNECTED. CALLED [facility] AND INFORMED HIM AND HE SAID HE WOULD LOOK AT HIS CHART. I INFORMED HIM THAT I HELD HIS ENTRESTO. HE STATED THAT ITS A GOOD IDEA TO HOLD THAT FOR NOW AND HE STATED THAT HE WOULD PAGE THE RESIDENT AND INFORM HIM OF THE BP.
[2024-05-20 05:06] LABS: BASOPHILS ABSOLUTE AUTO 0.08 K/mm3 (0.00-0.23); BASOPHILS PERCENT AUTO 1 % (0-2); EOSINOPHILS PERCENT AUTO 2 % (0-6); Hematocrit 38.2 % (37.0-53.0); Hemoglobin 13.1 g/dL (13.5-17.5); IMMATURE GRAN ABSOLUTE AUTO 0.03 K/mm3 (0.00-0.10); IMMATURE GRAN PERCENT AUTO 0 % (0-1); LYMPHOCYTES ABSOLUTE AUTO 1.35 K/mm3 (0.84-5.20); LYMPHOCYTES PERCENT AUTO 13 % (21-46); MONOCYTES ABSOLUTE AUTO 1.04 K/mm3 (0.16-1.47); MONOCYTES PERCENT AUTO 10 % (4-13); Mean Corpuscular HGB Conc 34.3 g/dL (31.5-36.5); Mean Corpuscular Volume 88 fL (80-100); Mean Platelet Volume 9.3 fL (9.1-12.4); NEUTROPHILS ABSOLUTE AUTO 7.59 K/mm3 (1.96-9.15); NEUTROPHILS PERCENT AUTO 74 % (41-73); Platelet Count 279 K/mm3 (150-400); RDW Coefficient Variation 15.9 % (11.7-14.2); RDW Standard Deviation 50.3 fL (35.1-46.3); Red Blood Cell Count 4.36 M/mm3 (4.30-5.90); White Blood Cell Count 10.29 K/mm3 (4.00-11.30)
[2024-05-20 05:47] LABS: Albumin, Blood 2.8 g/dL (3.4-5.0); Albumin/Globulin Ratio 0.8 (0.8-1.8); Bilirubin, Total 2.8 mg/dL (0.1-1.0); Bun/Creatinine Ratio 28.8 (12.0-20.0); Calcium, Blood 8.6 mg/dL (8.5-10.1); Creatinine, Blood 1.04 mg/dL (0.60-1.20); Globulin, Blood 3.7 g/dL (2.2-4.0); Magnesium, Blood 1.9 mg/dL (1.6-2.4); Phosphorus, Blood 2.8 mg/dL (2.5-4.9); Potassium, Blood 3.1 mmol/L (3.5-5.5); Total Protein, Blood 6.5 g/dL (6.4-8.2)
[2024-05-20] MEDS ORDERED: Potassium Chl 20MEQ/Water100ML 100 ML IV SCH (07:45)
[2024-05-20] MEDS ORDERED: CARV3.125 PO (10:19)
[2024-05-20] MEDS ORDERED: Prinivil10 MG PO (10:19)
[2024-05-20] MEDS ORDERED: Potassium Chloride 10 Meq Tablet SA PO ONE (11:00)
[2024-05-20] MEDS ORDERED: Polyethylene Glycol 3350 17 gm PO PRN (11:05)
[2024-05-20] MEDS ORDERED: Mag Sulfate 1 GM/D5% 100ML 100 ML IV STA (11:05)
[2024-05-20] MEDS ORDERED: METO25ER PO (11:24)
[2024-05-20 15:39] VITALS: BP 99/71
--- NOTE | 2024-05-20 16:34 | NUR ---
SHIFT SUMMARY; PATIENT ONLY RECEIVED PARTIAL AMOUNT OF IV POTTASSIUM HE SAID IT WAS BURNING TOO MUCH EVEN WITH MINIMAL AMOUNT DILUTED WITH NS. HE COMPLAINS OF LEG CRAMPING DURING DAY AND IS NOTED TO BE AGITATED THIS AFTERNOON. HIS VITAL SIGNS SHOW LOW B/P THROUGHOUT DAY. HE IS AO X 4 HE IS NOT FEBRILE. HE EATS ALL MEALS WITH GOOD APPETITE. HE IS MEDICATED X 2 DURING DAY WITH TRAMADOL FOR PAIN 03/06 WITH MINIMAL RESULTS. WILL CONTINUE TO MONITOR THIS PATIENT CLOSELY UNTIL REPORT AND HAND OFF TO NOC SHIFT RN.
[2024-05-20] MEDS ORDERED: Empagliflozin 10 MG TAB PO SCH (18:00)
[2024-05-20] MEDS ORDERED: Bumetanide 0.25 MG/ML 10ML Vial IV SCH (18:00)
[2024-05-20] MEDS ORDERED: Bumetanide 0.25 MG/ML 4ML ViaL IV SCH (18:00)
[2024-05-20 19:25] VITALS: BP 86/65
--- NOTE | 2024-05-20 23:32 | NUR ---
Called Dr. Silver and informed him of pts bp continuing to be low in the 80's. He stated that he would look into his chart
[2024-05-21 02:30] VITALS: BP 90/72
--- NOTE | 2024-05-21 02:46 | NUR ---
pT HAD 2 RUNS OF V TACH ONE WITH 5 BEATS AND ONE WAS 6 BEATS. BPS HAVE BEEN RUNNING LOW. CALLED [facility] AND INFORMED HIM AND HE STATED THAT HES TAKING MEDS FOR HIS CHF AND THOSE ARE CAUSING HIS BP TO BE LOWER. HE ALSO STATED THAT HE DONT THINK MIDODRINE IS NEEDED AT THIS TIME.
--- NOTE | 2024-05-21 04:32 | NUR ---
SHIFT SUMMARY PT ALERT ORIENTED ABLE TO VERBALIZE NEEDS. GETS UP IN ROOM AD EUFEMIA AND AMBULATES TO THE BATHROOM. HE HAD 2 RUNS OF VTACH THIS SHIFT ONE WAS A 6 BEAT AND ONE WAS A 5 BEAT.MD WAS INFORMED. HIS BP IS STILL RUNNING LOW AT 86/65. MD PUT IN A ORDER TO START MIDODRINE IN THE MORNING. NO C/O PAIN THIS SHIFT. REMAINS ON TELEMETRY AT [facility] WITH A RATE OF 76. REMAINS ON RA SATTING AT 91%. REMAINS ON A 1500ML FLUID RESTRICTION STRICT I7O AND DAILY WEIGHTS.RESTING IN BED AT THIS TIME.
[2024-05-21 04:50] LABS: BASOPHILS ABSOLUTE AUTO 0.11 K/mm3 (0.00-0.23); BASOPHILS PERCENT AUTO 1 % (0-2); EOSINOPHILS ABSOLUTE AUTO 0.22 K/mm3 (0.00-0.68); EOSINOPHILS PERCENT AUTO 3 % (0-6); Hematocrit 41.6 % (37.0-53.0); Hemoglobin 14.2 g/dL (13.5-17.5); IMMATURE GRAN ABSOLUTE AUTO 0.02 K/mm3 (0.00-0.10); IMMATURE GRAN PERCENT AUTO 0 % (0-1); LYMPHOCYTES ABSOLUTE AUTO 1.81 K/mm3 (0.84-5.20); LYMPHOCYTES PERCENT AUTO 22 % (21-46); MONOCYTES ABSOLUTE AUTO 1.08 K/mm3 (0.16-1.47); MONOCYTES PERCENT AUTO 13 % (4-13); Mean Corpuscular HGB 30.1 pg (26.0-34.0); Mean Corpuscular HGB Conc 34.1 g/dL (31.5-36.5); Mean Corpuscular Volume 88 fL (80-100); Mean Platelet Volume 9.7 fL (9.1-12.4); NEUTROPHILS ABSOLUTE AUTO 5.06 K/mm3 (1.96-9.15); NEUTROPHILS PERCENT AUTO 61 % (41-73); Platelet Count 324 K/mm3 (150-400); RDW Standard Deviation 50.4 fL (35.1-46.3); Red Blood Cell Count 4.72 M/mm3 (4.30-5.90)
[2024-05-21 05:30] LABS: Albumin, Blood 3.1 g/dL (3.4-5.0); Albumin/Globulin Ratio 0.7 (0.8-1.8); Bilirubin, Total 2.4 mg/dL (0.1-1.0); Bun/Creatinine Ratio 26.6 (12.0-20.0); Calcium, Blood 9.1 mg/dL (8.5-10.1); Creatinine, Blood 1.28 mg/dL (0.60-1.20); Globulin, Blood 4.5 g/dL (2.2-4.0); Magnesium, Blood 2.2 mg/dL (1.6-2.4); Potassium, Blood 3.1 mmol/L (3.5-5.5); Total Protein, Blood 7.6 g/dL (6.4-8.2)
[2024-05-21] MEDS ORDERED: Potassium Chloride 10 Meq Tablet SA PO ONE (07:30)
[2024-05-21] MEDS ORDERED: Potassium Chl 20MEQ/Water100ML 100 ML IV STA (07:33)
[2024-05-21 07:39] VITALS: BP 89/65
[2024-05-21] MEDS ORDERED: Potassium Chloride 20 MEQ TabCR PO ONE (08:00)
[2024-05-21] MEDS ORDERED: Midodrine 5 MG Tab PO SCH (09:00)
[2024-05-21] MEDS ORDERED: Torsemide 20 MG TAB PO SCH (09:00)
[2024-05-21] MEDS ORDERED: Eplerenone 25 MG Tab PO SCH (11:00)
[2024-05-21] MEDS ORDERED: EPLE25 PO (11:58)
[2024-05-21] MEDS ORDERED: JARDIANCE10 MG PO (11:58)
[2024-05-21] MEDS ORDERED: MIRALAX17 GM PO (12:00)
[2024-05-21] MEDS ORDERED: MIDO5 PO (12:00)
[2024-05-21 12:53] VITALS: BP 89/66
--- NOTE | 2024-05-21 17:27 | NUR ---
PT DC'd HOME. DC INSTRUCTIONS GIVEN. MEDICATIONS FAXED TO PHARMACY. PT DRESSED INDEPENDENTLY. IV AND TELE DC'd. ALL BELONGINGS SENT HOME WITH PT. NO NEW QUESTIONS OR CONCERNS. PT DECLINED WHEELCHAIR AND WAS ABLE TO WALK TO WAITING VEHICLE.
== END 2024-05-21 13:00 | disposition home or self-care (01) | DRG 291 ==
LOC: ER 12:05 → ERHOLD 22:20 → MEDS 22:20
PROVIDERS: Emergency Medicine; Family Medicine; Student in an Organized Health Care Education/Training Program; ADMIT Internal Medicine
DX: I50.43 Acute on chronic combined systolic (congestive) and diastolic (congestive) heart failure (principal); J96.01 Acute respiratory failure with hypoxia; I42.0 Dilated cardiomyopathy; N32.1 Vesicointestinal fistula; N39.0 Urinary tract infection, site not specified; E87.1 Hypo-osmolality and hyponatremia; K80.00 Calculus of gallbladder with acute cholecystitis without obstruction; I47.20 Ventricular tachycardia, unspecified; I48.91 Unspecified atrial fibrillation; F32.A Depression, unspecified; I08.1 Rheumatic disorders of both mitral and tricuspid valves; I27.20 Pulmonary hypertension, unspecified; K76.0 Fatty (change of) liver, not elsewhere classified; E87.6 Hypokalemia; Z79.899 Other long term (current) drug therapy; Z88.8 Allergy status to other drugs, medicaments and biological substances; F17.210 Nicotine dependence, cigarettes, uncomplicated; Z91.148 Patient's other noncompliance with medication regimen for other reason
CPT/HCPCS: 0241U; 36415; 71046; 71260; 74177; 80053; 81001; 83735; 83880; 84100; 84484; 85025; 87077; 87086; 87186; 93005; 93010; 96361; 96365-59; 96375-59; 99285-25; A9270; C8929; J0696; J1170; J1650; J1940; J2270; J2405; J3010; J3475; J3480; J7030; J7050; Q9957; Q9967

== ENCOUNTER 2024-10-17 18:57 | Inpatient (IN) | payer MEDICARE, OTHER ==
[~2024-10-17] VITALS: Ht 180.3 cm; Wt 114.5 kg
[~2024-10-17 18:57] MED LIST changes: +CARV3.125 PO; +ENTRESTO 24 MG1 EACH PO; +EPLE25 PO; +Enoxaparin 40 MG/0.4 ML SYR SC SCH; +MIDO5 PO; +MIRALAX17 GM PO; +Prinivil10 MG PO
[2024-10-17 19:17] LABS: BASOPHILS ABSOLUTE AUTO 0.12 K/mm3 (0.00-0.23); BASOPHILS PERCENT AUTO 2 % (0-2); EOSINOPHILS ABSOLUTE AUTO 0.21 K/mm3 (0.00-0.68); EOSINOPHILS PERCENT AUTO 3 % (0-6); Hemoglobin 14.3 g/dL (13.5-17.5); IMMATURE GRAN ABSOLUTE AUTO 0.02 K/mm3 (0.00-0.10); IMMATURE GRAN PERCENT AUTO 0 % (0-1); LYMPHOCYTES ABSOLUTE AUTO 1.16 K/mm3 (0.84-5.20); LYMPHOCYTES PERCENT AUTO 14 % (21-46); MONOCYTES PERCENT AUTO 12 % (4-13); Mean Corpuscular HGB 30.2 pg (26.0-34.0); Mean Corpuscular Volume 89 fL (80-100); Mean Platelet Volume 9.8 fL (9.1-12.4); NEUTROPHILS ABSOLUTE AUTO 5.57 K/mm3 (1.96-9.15); NEUTROPHILS PERCENT AUTO 69 % (41-73); Platelet Count 214 K/mm3 (150-400); RDW Coefficient Variation 21.9 % (11.7-14.2); RDW Standard Deviation 70.3 fL (35.1-46.3); Red Blood Cell Count 4.74 M/mm3 (4.30-5.90); White Blood Cell Count 8.08 K/mm3 (4.00-11.30)
[2024-10-17 19:46] LABS: Albumin, Blood 2.8 g/dL (3.4-5.0); Albumin/Globulin Ratio 0.6 (0.8-1.8); Bilirubin, Total 3.6 mg/dL (0.1-1.0); Bun/Creatinine Ratio 21.6 (12.0-20.0); Calcium, Blood 8.9 mg/dL (8.5-10.1); Creatinine, Blood 1.11 mg/dL (0.60-1.20); Globulin, Blood 4.8 g/dL (2.2-4.0); Potassium, Blood 4.6 mmol/L (3.5-5.5); Total Protein, Blood 7.6 g/dL (6.4-8.2)
[2024-10-17] MEDS ORDERED: FentaNYL Citrate 50 MCG/ML 2 ML Injection IV ONE ×2 (20:40→23:00)
[2024-10-17] MEDS ORDERED: Ipratropium Bromide INH 0.02% 0.5 mg/2.5ML Vial INH SCH (20:40)
[2024-10-17] MEDS ORDERED: MethylPREDNISolone Sod Succ 125 MG Vial IV ONE (20:40)
[2024-10-17] MEDS ORDERED: Albuterol 2.5 MG/3 ML VIAL INH SCH (20:40)
[2024-10-17 21:07] LABS: Source, Urine Clean Catch
[2024-10-17 21:11] LABS: Appearance, Urine Clear (Clear); Bilirubin, Urine Neg (Neg); Blood, Urine 1+ (Neg); Color, Urine Yellow (P-Yellow); Glucose Qualitative, Urine Neg (Neg); Ketones, Urine Neg (Neg); Leukocyte Esterase, Urine 3+ (Neg); Nitrite, Urine Neg (Neg); Protein, Urine Neg (Neg); Urobilinogen, Urine NORM (Normal)
[2024-10-17 21:19] LABS: Bacteria Many /hpf; Squamous Epithelial Cells Rare /hpf (Few)
[2024-10-17] MEDS ORDERED: CefTRIAXone Sodium 2,000 MG in NS 100 ML IV ONE (21:45)
[2024-10-17] MEDS ORDERED: FLU VACC TS2024-25(6MOS UP)/PF 45 MCG/0.5 ML SYRINGE IM ONE (23:45)
[2024-10-17] MEDS ORDERED: Ondansetron HCl 2 MG / ML 2ML Vial IV PRN (23:45)
[2024-10-18] MEDS ORDERED: Furosemide 10 MG / ML 2ML Vial IV SCH
[2024-10-18 00:01] LABS: International Normalized Ratio 1.47; Prothrombin Time Results 15.3 Sec (9.7-11.5)
[2024-10-18 05:42] LABS: BASOPHILS ABSOLUTE AUTO 0.01 K/mm3 (0.00-0.23); BASOPHILS PERCENT AUTO 0 % (0-2); EOSINOPHILS PERCENT AUTO 0 % (0-6); Hematocrit 39.9 % (37.0-53.0); Hemoglobin 13.9 g/dL (13.5-17.5); IMMATURE GRAN ABSOLUTE AUTO 0.03 K/mm3 (0.00-0.10); IMMATURE GRAN PERCENT AUTO 0 % (0-1); LYMPHOCYTES ABSOLUTE AUTO 0.37 K/mm3 (0.84-5.20); LYMPHOCYTES PERCENT AUTO 5 % (21-46); MONOCYTES ABSOLUTE AUTO 0.07 K/mm3 (0.16-1.47); MONOCYTES PERCENT AUTO 1 % (4-13); Mean Corpuscular HGB Conc 34.8 g/dL (31.5-36.5); Mean Corpuscular Volume 86 fL (80-100); NEUTROPHILS ABSOLUTE AUTO 7.53 K/mm3 (1.96-9.15); NEUTROPHILS PERCENT AUTO 94 % (41-73); Platelet Count 195 K/mm3 (150-400); RDW Standard Deviation 66.2 fL (35.1-46.3); Red Blood Cell Count 4.64 M/mm3 (4.30-5.90); White Blood Cell Count 8.01 K/mm3 (4.00-11.30)
[2024-10-18] MEDS ORDERED: POTCHL20ER PO (05:54)
[2024-10-18] MEDS ORDERED: TORSE20 PO (05:57)
[2024-10-18 06:13] LABS: Albumin, Blood 2.7 g/dL (3.4-5.0); Albumin/Globulin Ratio 0.6 (0.8-1.8); Bilirubin, Total 3.3 mg/dL (0.1-1.0); Bun/Creatinine Ratio 27.9 (12.0-20.0); Calcium, Blood 8.8 mg/dL (8.5-10.1); Creatinine, Blood 0.97 mg/dL (0.60-1.20); Globulin, Blood 4.7 g/dL (2.2-4.0); Potassium, Blood 4.1 mmol/L (3.5-5.5); Total Protein, Blood 7.4 g/dL (6.4-8.2)
[2024-10-18] MEDS ORDERED: Midodrine 5 MG Tab PO PRN ×2 (06:40→11:35)
[2024-10-18] MEDS ORDERED: MINO50 PO (06:45)
[2024-10-18] MEDS ORDERED: Polyethylene Glycol 3350 17 gm PO PRN (06:45)
[2024-10-18] MEDS ORDERED: CLINGEL TOP (06:48)
[2024-10-18] MEDS ORDERED: FentaNYL Citrate 50 MCG/ML 2 ML Injection IV PRN (06:53)
[2024-10-18 07:02] VITALS: BP 121/83
[2024-10-18 07:25] VITALS: BP 96/65
[2024-10-18] MEDS ORDERED: Potassium Chloride 20 MEQ TabCR PO SCH (09:00)
[2024-10-18] MEDS ORDERED: Potassium Chloride 10 Meq Tablet SA PO SCH (09:00)
[2024-10-18] MEDS ORDERED: OXYC5 PO (10:12)
[2024-10-18 11:35] VITALS: BP 109/82
[2024-10-18] MEDS ORDERED: OxyCODONE HCL 5 MG TAB PO PRN (11:35)
[2024-10-18 16:00] VITALS: BP 112/92
--- NOTE | 2024-10-18 16:43 | NUR ---
SHIFT SUMMARY PT REMAINS ALERT AND ORIENTED. BP STABLE. HR REMAINS NSR TO SINUS TACH. O2 SATS HAVE REMAIED ABOVE 90% ON RA. PT HAS COMPLAINED OF PAIN TO BLE ALL SHIFT. PT MEDICATED PER EMAR AND ENCOURAGED TO ELEVATE LEGS TO HELP ALLEVIATE SWELLING. PT AMBULATING IN ROOM FREQUENTLY THROUGHOUT SHIFT. WILL CONTINUE PLAN OF CARE AND REPORT OFF TO ONCOMING RN
[2024-10-18] MEDS ORDERED: Carvedilol 3.125 MG Tab PO SCH (17:00)
[2024-10-18] MEDS ORDERED: Bumetanide 0.25 MG/ML 4ML ViaL IV SCH (18:00)
--- NOTE | 2024-10-18 19:30 | NUR ---
ASSUMPTION OF CARE ASSUMED PT'S CARE AT 1900,BEDSIDE REPORT COMPLETED WITH [facility] NURSE.PT SITTING AT THE EDGE OF THE BED.PT STATES THAT HIS HOME DOSE OF OXYCODONE IS NOT EFFECTIVELY CONTROLLING HIS PAIN.STATES THAT OCCASIONALLY TAKES DOUBLE THE DOSE OF THE ORDERED OXYCODONE TO CONTROL HIS PAIN BECAUSE IT'S AVAILABLE.PT REQUESTING DILAUDID FOR BETTER PAIN CONTROL.INFORMED PT THAT WILL NOTIFY THE DOCTOR.PT DENIES FURTHER NEEDS AT THIS TIME.PLAN OF CARE REVIEWED.CALL LIGHT AND PT'S ITEMS WITHIN REACH.WILL CONTINUE TO MONITOR.
[2024-10-18 20:40] VITALS: BP 113/90
[2024-10-18] MEDS ORDERED: CefTRIAXone Sodium 1,000 MG in NS 100 ML IV SCH (21:00)
[2024-10-18] MEDS ORDERED: Clindamycin Phosphate 60 GM Tube TOP SCH (21:00)
[2024-10-18] MEDS ORDERED: Sacubitril/Valsartan 24 MG-26 MG Tab PO SCH (21:00)
[2024-10-19] VITALS (7 sets, daily range): BP systolic 91–128; BP diastolic 70–113
[2024-10-19] MEDS ORDERED: OxyCODONE HCL 5 MG TAB PO PRN (04:20)
[2024-10-19 04:26] LABS: Anion Gap 11 mmol/L (3-11); Blood Urea Nitrogen 36 mg/dL (8-24); Bun/Creatinine Ratio 37.8 (12.0-20.0); CO2, Blood 27 mmol/L (21-32); Chloride, Blood 95 mmol/L (98-108); Creatinine, Blood 0.95 mg/dL (0.60-1.20); Glomerular Filtration Rate 101 (60-); Glucose, Blood 113 mg/dL (70-99); Magnesium, Blood 2.4 mg/dL (1.6-2.4); Phosphorus, Blood 4.3 mg/dL (2.5-4.9); Potassium, Blood 4.5 mmol/L (3.5-5.5); Sodium, Blood 128 mmol/L (136-145)
--- NOTE | 2024-10-19 06:29 | NUR ---
PT HAS BEEN SLEEPING MOST OF THE NIGHT,PRN OXYCODONE GIVEN ORDERED FOR PAIN.PT REQUIRED AN EXTRA DOSE OF PAIN MEDICINE,PT PARTICULARLY ASKED FOR DILAUDID.THE RESIDENT SAW HIM AT THE BEDSIDE.INCREASED DOSE OF OXYCODONE ORDERED,PT GIVEN PER ORDER.PT SLEEPING AT THIS TIME,DENIES NEEDS.CALL LIGHT AND PT'S ITEMS WITHIN REACH.WILL GIVE REPORT TO DAYSHIFT NURSE FOR CONTINUITY OF CARE.
--- NOTE | 2024-10-19 11:30 | NUR ---
CARE NOTE SCAFFOLDER NOTIFIED THIS RN AT APPROX. 1000 THAT PT HAD A 12 SEC. RUN OF AN IDIOVENTRICULAR RYTHM THAT REACHED 150'S-160'S. PT REFUSED COREG THIS AM. DR. FROST MADE AWARE OF TELE EVENT AT APPROX. 1125 BY THIS RN.
--- NOTE | 2024-10-19 17:49 | NUR ---
SHIFT SUMMARY PT IS ALERT AND ORIENTED X 4, HE IS INDEPENDENT IN ROOM. SBP NOTED TO BE SOFT IN LOW 96-LOW 100'S, MAP HAS BEEN IN 80'S. HR HAS BEEN SINUS TACHYCARDIA 100-110'S. PLEASE SEE PREVIOUS NOTE REGARDING TELE EVENT TO WHICH DR. FROST WAS NOTIFIED. SPO2 MAINTAINED >95% VIA RA. HE HAS DENIED FEELING SOB, CHEST PAIN/PRESSURE OR NAUSEOUS. HE HAS ALSO DENIED FEELING LIGHTHEADED/DIZZY. NO COUGH NOTED. PAIN REPORTED IN BILATERAL LOWER EXTREMETIES, HE HAS BEEN ELEVATING BLE ON PILLOWS T/O SHIFT. CALL LIGHT IS W/IN REACH.
--- NOTE | 2024-10-19 22:52 | NUR ---
@2250, PT ARRIVED TO THE MEDICAL FLOOR FROM PCU. PT BROUGHT ALL HIS BELONINGS WITH HIM. PT REMAINED IN BED/BED WAS SWITCHED. EDUCATED SCRAP DEALER LIGHT AND FALL PRECAUTIONS. PT IS A/O X4 AND ABLE TO MAKE HIS NEEDS KNOWN. CURRENTLY PT DENIES PAIN AND DISCOMFORT. IV IS ON LFA. PT IS ON RA, SAT'S>99%. BEDSIDE URINAL IN PLACE. TELE: SINUS TACH @110. SNACK PROVIDED. HH DIET ORDER. NO QUESTIONS OR CONCERNS PER PT AT THIS TIME. BED AT THE LOWEST POSITION, CALL LIGHT W/I REACH.
--- NOTE | 2024-10-19 23:23 | NUR ---
TRANSFER OF CARE NOTE @ APPROX 2025 REPORT GIVEN BY THIS RN TO MEDICAL FLOOR RN/ ISATU, PT TRANFERED TO MEDICAL 341 VIA WHEELCHAIR AND MEDICAL STAFF. VSS.
[2024-10-20] VITALS (10 sets, daily range): BP systolic 79–113; BP diastolic 60–82
[2024-10-20 06:56] LABS: Anion Gap 11 mmol/L (3-11); Blood Urea Nitrogen 38 mg/dL (8-24); Bun/Creatinine Ratio 41.7 (12.0-20.0); CO2, Blood 26 mmol/L (21-32); Calcium, Blood 8.7 mg/dL (8.5-10.1); Chloride, Blood 97 mmol/L (98-108); Creatinine, Blood 0.91 mg/dL (0.60-1.20); Glomerular Filtration Rate 107 (60-); Glucose, Blood 85 mg/dL (70-99); Phosphorus, Blood 4.2 mg/dL (2.5-4.9); Potassium, Blood 3.8 mmol/L (3.5-5.5); Sodium, Blood 130 mmol/L (136-145)
[2024-10-20] MEDS ORDERED: Empagliflozin 10 MG TAB PO SCH (09:00)
--- NOTE | 2024-10-20 11:04 | NUR ---
0972- THIS RN CALLED MD FROST AND ASKED IF COREG SHOUDL BE GIVEN THIS AM DUE TO PT'S BP LESS THAN 100, BUT PT'S PL=366. SAID TO GIVE COREG AND GIVE MIDODRINE WELL.
--- NOTE | 2024-10-20 11:48 | NUR ---
1140- NOTIFIED MD FROST PT HAD A 4 BEAT RUN OF V-TACH. NO NEW ORDERS. AWARE.
--- NOTE | 2024-10-20 16:41 | NUR ---
1620- NOTIFIED TLAANG OF 8 SEC RUN OF V-TACH PER TELE. STATED, "ELECTROLYTES ARE OK. HE HAS LOW EF. THIS IS EXPECTED." NO NEW ORDERS. SAID TO CALL AGAIN ONLY IF V-TACH IS SUSTAINED.
--- NOTE | 2024-10-20 17:57 | NUR ---
923- RN CALLED MD FROST AND INFORMED HER PT'S BP=99/67 AND IY=252. SAID TO GIVE COREG THAT IS DUE AND CHANGE MIDODRINE ORDER TO 10MG TID PRN FOR SYSTOLIC BP LESS THAN 100. DC OLD MIDODRINE ORDER. RN TO PLACE ORDERS. SAID TO GIVE COREG AND BUMEX THAT IS DUE.
[2024-10-20] MEDS ORDERED: Midodrine 5 MG Tab PO PRN (18:05)
--- NOTE | 2024-10-20 18:48 | NUR ---
SUMMARY- AAOX4. IND IN ROOM/HALLS. PT ON RA. BACK PAIN WELL CONTROLLED WITH EMAR PAIN MEDS. X3 EPISODES OF V-TACH RUNS. TLAANG AWARE. NO OTHER ACUTE EVENTS THIS SHIFT.
[2024-10-20] MEDS ORDERED: NS 1,000 ML BAG IR ONE (20:30)
[2024-10-20] MEDS ORDERED: NS 500 ML IV ONE (20:55)
[2024-10-21 04:06] VITALS: BP 85/71
--- NOTE | 2024-10-21 05:43 | NUR ---
AAOX4. INDEPENDENT IN ROOM, USES CALL LIGHT FOR NEEDS. TELE, ST @101. RA. 10MG OXY TID FOR GENERALIZED PAIN. ASSYMTOMATIC HYPOTENSION, NOTIFIED AYAZ PRASAD'Zenaida ORDER FOR 500 ML NS BOLUS X1, HELD ENTRESTO AND ADVISED TO RECHECK BP, 110'S ADVISED MEDICATIONS COMPLICATING BP, NO MEDIDRINE GIVEN AND MONITOR FOR SYMTOMS. , TESSA IN ROOM OVERNIGHT, PT IS NO LONGER UNDER CONFIDENTIAL STATUS
[2024-10-21 07:18] VITALS: BP 92/77
[2024-10-21 07:30] LABS: Albumin, Blood 2.9 g/dL (3.4-5.0); Anion Gap 10 mmol/L (3-11); Blood Urea Nitrogen 33 mg/dL (8-24); Bun/Creatinine Ratio 34.7 (12.0-20.0); CO2, Blood 27 mmol/L (21-32); Calcium, Blood 8.5 mg/dL (8.5-10.1); Chloride, Blood 99 mmol/L (98-108); Creatinine, Blood 0.95 mg/dL (0.60-1.20); Glomerular Filtration Rate 101 (60-); Glucose, Blood 109 mg/dL (70-99); Phosphorus, Blood 4.2 mg/dL (2.5-4.9); Potassium, Blood 3.8 mmol/L (3.5-5.5); Sodium, Blood 132 mmol/L (136-145)
[2024-10-21] MEDS ORDERED: Cephalexin Monohydrate 500 MG Cap PO SCH (09:00)
[2024-10-21] MEDS ORDERED: Furosemide 10 MG/ML 4ML Vial IV SCH (09:00)
[2024-10-21 09:11] VITALS: BP 99/77
[2024-10-21 11:40] VITALS: BP 100/70
[2024-10-21 15:48] VITALS: BP 98/73
--- NOTE | 2024-10-21 16:42 | NUR ---
PATIENT A/OX4, UP INDEPENDENTLY IN ROOM. VSS, ON RA. SLEEP OXIMETRY ORDERED FOR THIS EVENING. PATIENT SR/ST ON TELE, HAD AND EPISODE OF SVT AND A 5 BEAT RUN OF V-TACH THIS EVENING, DR NGUYEN NOTIFIED. PATIENT ASYMPTOMATIC WITH EVENTS. OXYCODONE GIVEN X1 TODAY FOR PAIN WITH STATED RELIEF. AT BEDSIDE THROUGHOUT THE SHIFT. PATIENT COOOPERATIVE WITH CARE AND CALLS APPROPRIATELY FOR ASSISTANCE.
[2024-10-21 20:34] VITALS: BP 99/79
[2024-10-22 00:39] VITALS: BP 93/69
[2024-10-22 04:15] VITALS: BP 93/74
[2024-10-22 05:46] LABS: Hematocrit 41.1 % (37.0-53.0); Hemoglobin 14.2 g/dL (13.5-17.5); Mean Corpuscular HGB 30.2 pg (26.0-34.0); Mean Corpuscular HGB Conc 34.5 g/dL (31.5-36.5); Mean Corpuscular Volume 87 fL (80-100); Mean Platelet Volume 10.1 fL (9.1-12.4); Platelet Count 202 K/mm3 (150-400); RDW Coefficient Variation 21.6 % (11.7-14.2); RDW Standard Deviation 68.4 fL (35.1-46.3); White Blood Cell Count 8.26 K/mm3 (4.00-11.30)
[2024-10-22 06:12] LABS: Albumin, Blood 2.7 g/dL (3.4-5.0); Anion Gap 11 mmol/L (3-11); Blood Urea Nitrogen 29 mg/dL (8-24); Bun/Creatinine Ratio 29.6 (12.0-20.0); CO2, Blood 28 mmol/L (21-32); Calcium, Blood 8.4 mg/dL (8.5-10.1); Chloride, Blood 96 mmol/L (98-108); Creatinine, Blood 0.98 mg/dL (0.60-1.20); Glomerular Filtration Rate 98 (60-); Glucose, Blood 114 mg/dL (70-99); Magnesium, Blood 2.4 mg/dL (1.6-2.4); Phosphorus, Blood 3.6 mg/dL (2.5-4.9); Potassium, Blood 3.4 mmol/L (3.5-5.5); Sodium, Blood 132 mmol/L (136-145)
[2024-10-22 08:37] VITALS: BP 97/77
[2024-10-22] MEDS ORDERED: CEPH500 PO (11:33)
[2024-10-22] MEDS ORDERED: Bystolic2.5 MG PO (11:34)
[2024-10-22] MEDS ORDERED: POTCHL20ER PO (11:35)
[2024-10-22] MEDS ORDERED: JARDIANCE10 MG PO (11:36)
--- NOTE | 2024-10-22 13:36 | NUR ---
DC SUMMARY PT DC THIS SHIFT. DC INSTRUCTION GONE OVER WITH PT AND PT WHOM BOTH STATED UNDERSTANDING. PT DECLINED TO BE ESCORTED OUT AND WALKED OUT PT NOTED TO HAVE STEADY GAIT.
[2024-10-22] MEDS ORDERED: Carvedilol 3.125 MG Tab PO SCH (17:00)
== END 2024-10-22 12:58 | disposition home or self-care (01) | DRG 292 ==
LOC: ER 18:57 → MEDS 23:24 → PCU 23:24 → MEDS 23:24 → ERHOLD 23:24 → PCU 10-18 05:36 → MEDS 10-19 22:44 → ENPENDDIS 10-22 11:44 → MEDS 10-22 12:58
PROVIDERS: Internal Medicine; Student in an Organized Health Care Education/Training Program; ADMIT Internal Medicine
DX: I50.23 Acute on chronic systolic (congestive) heart failure (principal); I42.8 Other cardiomyopathies; J44.1 Chronic obstructive pulmonary disease with (acute) exacerbation; Z16.24 Resistance to multiple antibiotics; N32.1 Vesicointestinal fistula; N39.0 Urinary tract infection, site not specified; I48.91 Unspecified atrial fibrillation; F32.A Depression, unspecified; T43.655A Adverse effect of methamphetamines, initial encounter; F17.210 Nicotine dependence, cigarettes, uncomplicated; E88.09 Other disorders of plasma-protein metabolism, not elsewhere classified; I08.1 Rheumatic disorders of both mitral and tricuspid valves; L98.9 Disorder of the skin and subcutaneous tissue, unspecified; F11.10 Opioid abuse, uncomplicated; I27.20 Pulmonary hypertension, unspecified; G89.29 Other chronic pain; Z91.148 Patient's other noncompliance with medication regimen for other reason; Z98.890 Other specified postprocedural states; Z88.8 Allergy status to other drugs, medicaments and biological substances; Z79.899 Other long term (current) drug therapy; Z28.21 Immunization not carried out because of patient refusal
CPT/HCPCS: 36415; 71046; 80053; 80069; 81001; 83605; 83735; 83880; 84484; 85025; 85027; 85610; 87077; 87086; 87186; 93005; 93010; 94644; 94664; 94760; 94762; 96365; 96375; 96376; 99285-25; A9270; G0378; J0696; J1650; J1940; J2919; J3010; J7040

== ENCOUNTER 2024-12-02 10:35 | Day surgery (SDC) | payer MEDICARE, OTHER ==
[~2024-12-02] VITALS: Ht 180.3 cm; Wt 96.3 kg
[~2024-12-02 10:35] MED LIST changes: +Bystolic2.5 MG PO; +CLINGEL TOP; -Enoxaparin 40 MG/0.4 ML SYR SC SCH; +LYRICA50 M1 PO; +Lactated Ringer's 1,000 ML IV SCH; +MINO50 PO; +POTCHL20ER PO
[2024-12-02 11:30] VITALS: BP 106/84
--- NOTE | 2024-12-02 11:46 | NUR ---
Ambulatory in Day Surgery. History, Chart, Medications and Allergies reviewed before start of procedure. Lungs clear T/O to Auscultation. Patient confirms NPO status and agrees with scheduled surgery. Pre-Op teaching done. Pt verbalizes understanding. Patient States Post-Procedure ride home has been arranged.
[2024-12-02] MEDS ORDERED: ePHEDrine Sulfate 50 MG/ML 1ML Injection ONE (13:16)
[2024-12-02] MEDS ORDERED: propofoL 40 ML IV ONE (13:16)
[2024-12-02] MEDS ORDERED: Lidocaine HCl 2% 10 ML SDA ONE (13:17)
--- NOTE | 2024-12-02 13:19 | NUR ---
12/02/24 1319 Danyelle Heck MONITOR INTACT WITH CONTINUOUS PULSE OXIMETRY, CONTINUOUS END TITAL CO2, 3-LEAD EKG AND INTERMITTENT BLOOD PRESSURE.
[2024-12-02] MEDS ORDERED: propofoL 20 ML IV ONE (13:29)
[2024-12-02 14:00] VITALS: BP 107/59
[2024-12-02 14:16] VITALS: BP 107/68
--- NOTE | 2024-12-02 14:29 | NUR ---
Discharge instructions reviewed with patient. Patient verbalizes understanding. Copy given to patient to take home. Patient States Post-Procedure ride home has been arranged. Discharged via wheelchair to private car for ride home.
== END 2024-12-02 14:30 | disposition home or self-care (01) ==
LOC: ORSCMMR 10:35 → ORD 11:45 → ORSCMMR 11:45 → ORSCSDS 12-07 10:45
PROVIDERS: Surgery
PROC: 0DBN8ZX Excision of Sigmoid Colon, Via Natural or Artificial Opening Endoscopic, Diagnostic (ICD-10-PCS; principal; 2024-12-02 11:45)
DX: N32.1 Vesicointestinal fistula (principal); K63.5 Polyp of colon; K57.30 Diverticulosis of large intestine without perforation or abscess without bleeding; I42.8 Other cardiomyopathies; I50.20 Unspecified systolic (congestive) heart failure; F41.9 Anxiety disorder, unspecified; F32.A Depression, unspecified; F17.210 Nicotine dependence, cigarettes, uncomplicated; Z79.899 Other long term (current) drug therapy
CPT/HCPCS: 88305; J2003; J2704; J7120